=== PATIENT | female | born 1945 | race Caucasian/White ===

== ENCOUNTER → 2020-08-26 13:04 | Outpatient (BNVA) | payer MEDICARE, SELFPAY | PROVIDERS: PCP Nurse Practitioner Family; Visit Provider Internal Medicine | DX: I48.20 Chronic atrial fibrillation, unspecified (principal); Z51.81 Encounter for therapeutic drug level monitoring; Z79.01 Long term (current) use of anticoagulants | CPT/HCPCS: 85610 ==

== ENCOUNTER 2020-08-26 14:04 | Outpatient (REF) | payer MEDICARE, SELFPAY ==
[2020-08-26 14:32] LABS: Prothrombin Time 64.9 SEC (10.8-13.0)
[2020-08-26 14:38] LABS: INTERNATIONAL NORM RATIO 5.4 (0.9-1.1)
== END 2020-08-26 14:05 | disposition home or self-care (01) ==
LOC: HO.LAB 14:04
PROVIDERS: Visit Provider Internal Medicine
DX: Z79.01 Long term (current) use of anticoagulants (principal)
CPT/HCPCS: 36415; 85610

== ENCOUNTER → 2020-08-28 11:34 | Outpatient (BNVA) | payer MEDICARE, SELFPAY | PROVIDERS: PCP Nurse Practitioner Family; Visit Provider Internal Medicine | DX: I48.20 Chronic atrial fibrillation, unspecified (principal); Z51.81 Encounter for therapeutic drug level monitoring; Z79.01 Long term (current) use of anticoagulants | CPT/HCPCS: 85610; 99211 ==

== ENCOUNTER → 2020-09-05 15:32 | Outpatient (BNVA) | payer MEDICARE, SELFPAY | PROVIDERS: PCP Nurse Practitioner Family; Visit Provider Internal Medicine | DX: I48.20 Chronic atrial fibrillation, unspecified (principal); Z51.81 Encounter for therapeutic drug level monitoring; Z79.01 Long term (current) use of anticoagulants | CPT/HCPCS: 85610; 99211 ==

== ENCOUNTER → 2020-09-12 15:53 | Outpatient (BNVA) | payer MEDICARE, SELFPAY | PROVIDERS: PCP Nurse Practitioner Family; Visit Provider Internal Medicine | DX: I48.20 Chronic atrial fibrillation, unspecified (principal); Z51.81 Encounter for therapeutic drug level monitoring; Z79.01 Long term (current) use of anticoagulants | CPT/HCPCS: 85610; 99211 ==

== ENCOUNTER 2020-12-03 13:12 | Emergency (ER) | payer BC, SELFPAY ==
[2020-12-03 13:20] VITALS: BP 109/32; PULSE 60; RESP 20; TEMP 36.9; O2SAT 99; BMI 29.7
--- NOTE | 2020-12-03 15:32 | ED_ITS ---
HPI - General Adult General Chief complaint: General Medical <Barrett Bailey NP - Last Filed: 12/03/20 17:12> Stated complaint: groin pain <Barrett Bailey NP - Last Filed: 12/03/20 17:12> Time Seen by Provider: 12/03/20 15:32 <Barrett Bailey NP - Last Filed: 12/03/20 17:12> Source: patient <Barrett Bailey NP - Last Filed: 12/03/20 17:12> Mode of arrival: ambulatory <Barrett Bailey NP - Last Filed: 12/03/20 17:12> Limitations: no limitations <Barrett Bailey NP - Last Filed: 12/03/20 17:12> History of Present Illness HPI narrative: This is a pleasant 75-year-old female with past medical history that is significant for chronic obstructive pulmonary disease not on O2, 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, atrial fibrillation on chronic anticoagulation with Coumadin, 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, in addition acute intracranial bleed secondary to a fall who presents ambulatory via triage with complaint of left lower quadrant abdominal pain she reports to me that couple of weeks ago she went to for the on a trip there she had a syncopal episode and found to be significantly anemic in the ER subsequently had a workup found that she had a bleeding ulcer and had colonoscopy at [facility] in [facility] last month and since she has returned [place] [facility] she has been feeling weak and has had pain in the left lower quadrant. States she did have black tar stools prior to her syncopal episode in [place] however she has no longer had any black stools. She denies any upper respiratory symptoms. No chest pain or shortness of breath. States pain has been continuous for the past couple of weeks and has progressively gotten worse and hurts more with movement and palpation. <Barrett Bailey NP - Last Filed: 12/03/20 17:12> Onset (ago): week(s) <Barrett Bailey NP - Last Filed: 12/03/20 17:12> Location: abdomen <Barrett Bailey NP - Last Filed: 12/03/20 17:12> Severity: moderate <Barrett Bailey NP - Last Filed: 12/03/20 17:12> Quality: aching <Barrett Bailey NP - Last Filed: 12/03/20 17:12> Pain Consistency: constant <Barrett Bailey NP - Last Filed: 12/03/20 17:12> Associated symptoms: denies other symptoms <Barrett Bailey NP - Last Filed: 12/03/20 17:12> Treatments prior to arrival: none <Barrett Bailey NP - Last Filed: 12/03/20 17:12> Related Data Home medications: Home Medications Medication Instructions Recorded Confirmed albuterol sulfate 90 mcg/actuation 2 puff INHALATION Q4H PRN 08/25/20 12/03/20 aerosol inhaler metolazone 2.5 mg tablet 2.5 mg PO DAILY 08/25/20 12/03/20 metoprolol tartrate 25 mg tablet 25 mg PO BID 08/25/20 12/03/20 sertraline 50 mg tablet 50 mg PO DAILY 08/25/20 12/03/20 gabapentin 600 mg PO BID 12/03/20 12/03/20 pramipexole 0.75 mg PO DAILY 12/03/20 12/03/20 warfarin [Coumadin] 5 mg PO DAILY 12/03/20 12/03/20 Previous Rx's Medication Instructions Recorded oxycodone-acetaminophen 5 mg-325 1 tab PO Q8H PRN #20 tab 08/25/20 mg tablet aspirin 81 mg tablet,delayed 81 mg PO DAILY #90 tab 08/26/20 release omeprazole 20 mg capsule,delayed 20 mg PO DAILY #90 cap 08/26/20 release torsemide 10 mg tablet 30 mg PO BID #90 tab 08/26/20 <Barrett Bailey NP - Last Filed: 12/03/20 17:12> Allergies/adverse reactions: Allergies Allergy/AdvReac Type Severity Reaction Status Date / Time metronidazole [From FLAGYL] Allergy Intermediate ITCHING Verified 09/12/20 15:57 deet Allergy Unknown Unknown Verified 09/12/20 15:57 DEET MOSQUITO REPELLANT Allergy Severe ANGIOEDEMA Uncoded 08/07/20 14:59 metronidazole Allergy Unknown Unknown Uncoded 08/26/20 13:17 <Barrett Bailey NP - Last Filed: 12/03/20 17:12> Review of Systems Review of Systems: Constitutional: No Weight loss, No Fever, No Chills, No Night Sweats, No Fatigue, No Malaise ENT/Mouth: No Hearing loss, No Ear Pain, No Nasal Congestion, No Sinus Pain, No Hoarseness, No sore throat, No Rhinorrhea, No Swallowing Difficulty Eyes: No Eye Pain, No Swelling, No Redness, No Foreign Body, No Discharge, No Vision Changes Cardiovascular: No Chest Pain, No SOB, No Dyspnea on Exertion, No Orthopnea, No Edema, No Palpitations Respiratory: No Cough, No Sputum, No Wheezing, No Smoke Exposure, No Dyspnea Gastrointestinal: No Nausea, No Vomiting, No Diarrhea, No Constipation, + abdominal Pain, No Hematochezia, No Melena Genitourinary: no irregular bleeding, No Dysuria, No Urinary Frequency, No Hematuria, No Urinary Incontinence, No Urgency, No Flank Pain, No Urinary Flow Changes, No Hesitancy Musculoskeletal: No joint pain, No Myalgias, No Joint Swelling Skin: No Skin Lesions, No rash Neuro: No Weakness, No Numbness, No Paresthesias, No Loss of Consciousness, No Dizziness, No Headache Psych: No Social Issues Heme/Lymph: No Bruising, No Bleeding,No Lymphadenopathy Endocrine: No Polyuria, No Polydipsia, No Temperature Intolerance <Barrett Bailey NP - Last Filed: 12/03/20 17:12> Yes all other systems are reviewed and are negative <Barrett Bailey NP - Last Filed: 12/03/20 17:12> PMFSH Past Medical History Medical History: Medical History (Updated 12/03/20 @ 17:12 by Barrett Bailey NP) Atrial fibrillation Back pain Chronic a-fib Closed left hip fracture COPD (chronic obstructive pulmonary disease) Current use of anticoagulant therapy Epistaxis [place] Hip fracture Osteoarthritis of hip Sleep apnea Tachy-paras syndrome Traumatic intracranial hemorrhage <Barrett Bailey NP - Last Filed: 12/03/20 17:12> Surgical History: Surgical History Aortic valve replaced Tricuspid valve replaced <Barrett Bailey NP - Last Filed: 12/03/20 17:12> Social History Social History: Social History Alcohol intake: current Alcohol intake frequency: holidays/special occasions only Alcohol type: wine Smoked in Last 30 Days: No Use of substances other than those prescribed or required for medical reasons: No Advance Directives: No Advance Directives Information Provided: Yes <Barrett Bailey NP - Last Filed: 12/03/20 17:12> Physical Exam 2 Vital Signs: Vital Signs: Last Vital Signs Temp 98.4 F 12/03/20 22:00 Pulse 88 12/04/20 00:00 Resp 12/04/20 00:00 BP 134/75 12/04/20 00:00 Pulse Ox 97 12/04/20 00:00 Body Mass Index 29.7 Reviewed <Barrett Bailey NP - Last Filed: 12/03/20 17:12> Vital Signs: Last Vital Signs Temp 98.4 F 12/03/20 22:00 Pulse 88 12/04/20 00:00 Resp 12/04/20 00:00 BP 134/75 12/04/20 00:00 Pulse Ox 97 12/04/20 00:00 Body Mass Index 29.7 <Rosangela Pace NP - Last Filed: 12/04/20 01:31> Const: General: cooperative and healthy appearing; No acute distress or intoxicated appearing <Barrett Bailey NP - Last Filed: 12/03/20 17:12> Nutritional Appearance: average body habitus <Barrett Bailey NP - Last Filed: 17:12> Orientation/consciousness: patient oriented x3 <Barrett Bailey NP - Last Filed: 12/03/20 17:12> HENMT: Head: Yes normal to inspection <Barrett Bailey NP - Last Filed: 12/03/20 17:12> Ears: hearing grossly normal bilaterally <Barrett Bailey NP - Last Filed: 12/03/20 17:12> Eyes: General: appearance normal, both eyes and all related structures <Barrett Bailey NP - Last Filed: 12/03/20 17:12> Visual Molina: normal visual molina by confrontation <Barrett Bailey NP - Last Filed: 12/03/20 17:12> Neck: Neck: Yes normal visual inspection, No positive Brudzinski's sign, No positive Kernig's sign and No tender <Barrett Bailey NP - Last Filed: 12/03/20 17:12> Thyroid: Thyroid normal <Barrett Lynn PRODUCTION DISPATCHER - Last Filed: 12/03/20 17:12> Chest: Chest palpation & inspection: normal inspection of the chest <Barrett Bailey PRODUCTION DISPATCHER - Last Filed: 12/03/20 17:12> Resp: Effort & Inspection: normal respiratory effort <[facility] Bailey PRODUCTION DISPATCHER - Last Filed: 12/03/20 17:12> Cardio: Jugular venous distension: no JVD <Barrett Lynn - Last Filed: 12/03/20 17:12> Rate: regular rate <[facility] Bailey - Last Filed: 12/03/20 17:12> Rhythm: regular rhythm <[facility] Bailey - Last Filed: 12/03/20 17:12> Heart sounds: S1 normal heart sound present and S2 normal heart sound present <[facility] Bailey PRODUCTION DISPATCHER - Last Filed: 12/03/20 17:12> GI: Inspection: Yes normal to inspection <Barrettdeepika Bailey PRODUCTION DISPATCHER - Last Filed: 12/03/20 17:12> Palpation (GI): Tenderness to palpation present (GI) in the LLQ; with no rebound tenderness <Barrett Bailey PRODUCTION DISPATCHER - Last Filed: 12/03/20 17:12> Percussion: Yes normal to percussion <[facility] Bailey - Last Filed: 12/03/20 17:12> Auscultation: normal bowel sounds <Barrett Bailey PRODUCTION DISPATCHER - Last Filed: 12/03/20 17:12> : General: Yes no CVA tenderness <Barrett Bailey, PRODUCTION DISPATCHER - Last Filed: 12/03/20 17:12> Back/Spine/Pelvis: Back: no CVA tenderness <[facility] Bailey, PRODUCTION DISPATCHER - Last Filed: 12/03/20 17:12> Skin: General skin exam: no rashes or lesions noted <Barrett BaileyDONNA romero - Last Filed: 12/03/20 17:12> Neuro: General: patient oriented x3 <Barrett Bailey, PRODUCTION DISPATCHER - Last Filed: 12/03/20 17:12> Extrem: General: Yes normal to inspection <Barrett Bailey, PRODUCTION DISPATCHER - Last Filed: 12/03/20 17:12> Course Course Course Narrative: 1545 In review 75-year-old female with above history including history of atrial fibrillation chronically anticoagulated and GI bleed most recently evaluated and treated at [facility] at [facility] with patient's consent medical records requested who presents today with left lower quadrant abdominal pain ongoing for the past 1 and half week appears relatively uncomfortable. Occult stool done at bedside on arrival is negative sent to lab for analysis. She does seem a little pale to me and left lower quadrant abdominal pain. Will need labs including type and screen as well as imaging of the abdomen pelvis rule out acute infectious pathology/bleed less likely. Given her recent travel to [place] will also check for COVID-19. Differential diagnosis include but not limited to diverticular disease, renal calculi, acute perf. <Barrett Bailey NP - Last Filed: 12/03/20 17:12> Review of patient's medical records from [facility] in [place] for symptomatic anemia with heme-positive stools. 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 On 10/15/2020 H&H was 8.6/26 status post multiple RBC tra nsfusion on 10/14/2020. She does have heart valve replacement, pacemaker, hip replacement, knee rep lacement, and history of rheumatic valve disease. Patient states she is unable to manage her pain at home, does not feel that she could care for herself because of this pain. Plan of care is for PT, case management social worker palliative care. Patient does understand that she will be waiting in the emergency department until assessment 7th week. Patient verbalized understanding and agrees to care. <Rosangela Pace NP - Last Filed: 12/04/20 01:31> Reevaluation(s) Reevaluation #1: [id number] Sign out to night team pending re-evaluation and imaging. <Barrett Bailey NP - Last Filed: 12/03/20 17:12> Medical Decision Making Lab Data Result diagrams: : 12/03/20 16:11 12/03/20 16:11 <Barrett Bailey NP - Last Filed: 12/03/20 17:12> Labs: Lab Results 0112/03/20 12/03/20 Range/Units 16:11 16:11 16:11 WBC 10.7 (4.8-10.8) X10*3/uL RBC 3.47 L (4.20-5.50) X10*6/uL Hgb 8.9 L (12.0-16.0) g/dl Hct 28.6 L (37-47) % MCV 82.4 (80-98) fL MCH 25.6 L (27.0-33.0) pg MCHC 31.1 (31.0-35.0) g/dl RDW 17.2 H (11.0-16.0) % Plt Count 356 (160-400) X10*3/uL MPV 10.1 (9.4-12.3) fL Immature Gran % (Auto) 0.6 H (0.0-0.4) % Neut % (Auto) 74.1 H (45-73) % Lymph % (Auto) 12.6 L (20-40) % [place] % (Auto) 11.2 H (2-11) % Eos % (Auto) 1.0 (0-4) % Baso % (Auto) 0.5 (0-2) % Lymph # (Auto) 1.4 (1.2-4.9) X10*3/uL [place] # (Auto) 1.2 (0.1-1.2) X10*3/uL Eos # (Auto) 0.1 (0.0-0.4) X10*3/uL Baso # (Auto) 0.1 (0.0-0.2) X10*3/uL Abs Immat Gran (auto) 0.06 H (0.00-0.03) X10*3/uL Absolute Neuts (auto) 8.0 (2.0-8.3) X10*3/uL Absolute Nucleated RBC 0.000 (0.0-0.012) X10*3/uL Nucleated RBC % (auto) 0.0 (0.0-0.2) /100WBC PT 26.2 H D (10.8-13.0) SEC INR 2.2 H (0.9-1.1) APTT 36.7 (24.1-38.0) SEC Sodium (135-145) mmol/L Potassium (3.3-5.1) mmol/l Chloride (96-108) mmol/L Carbon Dioxide (22-29) mmol/L Anion Gap (12-20) BUN (9-16) mg/dL Creatinine (0.5-1.4) mg/dL Estim Creat Clear Calc Estimated GFR Random Glucose (60-115) mg/dL Calcium (8.4-10.2) mg/dL Total Bilirubin (0.0-1.0) mg/dL AST (5-31) U/L ALT (0-31) U/L Alkaline Phosphatase (39-117) U/L Troponin I High Sens (<3.5-17.0) ng/L Total Protein (6.5-8.0) g/dL Albumin (3.5-5.0) g/dL Stool Occult Blood (NEG) COVID-19 (ASHLEE) Negative (Negative) COVID-19 Clin Com See Note Blood Type Antibody Screen 12/03/20 12/03/20 12/03/20 Range/Units 16:11 16:11 16:11 WBC (4.8-10.8) X10*3/uL RBC (4.20-5.50) X10*6/uL Hgb (12.0-16.0) g/dl Hct (37-47) % MCV (80-98) fL MCH (27.0-33.0) pg MCHC (31.0-35.0) g/dl RDW (11.0-16.0) % Plt Count (160-400) X10*3/uL MPV (9.4-12.3) fL Immature Gran % (Auto) (0.0-0.4) % Neut % (Auto) (45-73) % Lymph % (Auto) (20-40) % [place] % (Auto) (2-11) % Eos % (Auto) (0-4) % Baso % (Auto) (0-2) % Lymph # (Auto) (1.2-4.9) X10*3/uL [place] # (Auto) (0.1-1.2) X10*3/uL Eos # (Auto) (0.0-0.4) X10*3/uL Baso # (Auto) (0.0-0.2) X10*3/uL Abs Immat Gran (auto) (0.00-0.03) X10*3/uL Absolute Neuts (auto) (2.0-8.3) X10*3/uL Absolute Nucleated RBC (0.0-0.012) X10*3/uL Nucleated RBC % (auto) (0.0-0.2) /100WBC PT (10.8-13.0) SEC INR (0.9-1.1) APTT (24.1-38.0) SEC Sodium 137 (135-145) mmol/L Potassium 3.0 L (3.3-5.1) mmol/l Chloride 91 L (96-108) mmol/L Carbon Dioxide 33 H (22-29) mmol/L Anion Gap 16 (12-20) BUN 45 H (9-16) mg/dL Creatinine 1.49 H (0.5-1.4) mg/dL Estim Creat Clear Calc 36.2 Estimated GFR 34 Random Glucose 97 (60-115) mg/dL Calcium 9.8 (8.4-10.2) mg/dL Total Bilirubin 0.7 (0.0-1.0) mg/dL AST 22 (5-31) U/L ALT 14 (0-31) U/L Alkaline Phosphatase 98 (39-117) U/L Troponin I High Sens 8.6 (<3.5-17.0) ng/L Total Protein 7.2 (6.5-8.0) g/dL Albumin 3.6 (3.5-5.0) g/dL Stool Occult Blood NEG (NEG) COVID-19 (ASHLEE) (Negative) COVID-19 Clin Com Blood Type Antibody Screen 12/03/20 Range/Units 16:11 WBC (4.8-10.8) X10*3/uL RBC (4.20-5.50) X10*6/uL Hgb (12.0-16.0) g/dl Hct (37-47) % MCV (80-98) fL MCH (27.0-33.0) pg MCHC (31.0-35.0) g/dl RDW (11.0-16.0) % Plt Count (160-400) X10*3/uL MPV (9.4-12.3) fL Immature Gran % (Auto) (0.0-0.4) % Neut % (Auto) (45-73) % Lymph % (Auto) (20-40) % [place] % (Auto) (2-11) % Eos % (Auto) (0-4) % Baso % (Auto) (0-2) % Lymph # (Auto) (1.2-4.9) X10*3/uL [place] # (Auto) (0.1-1.2) X10*3/uL Eos # (Auto) (0.0-0.4) X10*3/uL Baso # (Auto) (0.0-0.2) X10*3/uL Abs Immat Gran (auto) (0.00-0.03) X10*3/uL Absolute Neuts (auto) (2.0-8.3) X10*3/uL Absolute Nucleated RBC (0.0-0.012) X10*3/uL Nucleated RBC % (auto) (0.0-0.2) /100WBC PT (10.8-13.0) SEC INR (0.9-1.1) APTT (24.1-38.0) SEC Sodium (135-145) mmol/L Potassium (3.3-5.1) mmol/l Chloride (96-108) mmol/L Carbon Dioxide (22-29) mmol/L Anion Gap (12-20) BUN (9-16) mg/dL Creatinine (0.5-1.4) mg/dL Estim Creat Clear Calc Estimated GFR Random Glucose (60-115) mg/dL Calcium (8.4-10.2) mg/dL Total Bilirubin (0.0-1.0) mg/dL AST (5-31) U/L ALT (0-31) U/L Alkaline Phosphatase (39-117) U/L Troponin I High Sens (<3.5-17.0) ng/L Total Protein (6.5-8.0) g/dL Albumin (3.5-5.0) g/dL Stool Occult Blood (NEG) COVID-19 (ASHLEE) (Negative) COVID-19 Clin Com Blood Type A Positive Antibody Screen NEGATIVE <Barrett Lynn, PRODUCTION DISPATCHER - Last Filed: 12/03/20 17:12> Lab Results 12/03/20 12/03/20 12/03/20 Range/Units 16:11 16:11 16:11 WBC 10.7 (4.8-10.8) X10*3/uL RBC 3.47 L (4.20-5.50) X10*6/uL Hgb 8.9 L (12.0-16.0) g/dl Hct 28.6 L (37-47) % MCV 82.4 (80-98) fL MCH 25.6 L (27.0-33.0) pg MCHC 31.1 (31.0-35.0) g/dl RDW 17.2 H (11.0-16.0) % Plt Count 356 (160-400) X10*3/uL MPV 10.1 (9.4-12.3) fL Immature Gran % (Auto) 0.6 H (0.0-0.4) % Neut % (Auto) 74.1 H (45-73) % Lymph % (Auto) 12.6 L (20-40) % [place] % (Auto) 11.2 H (2-11) % Eos % (Auto) 1.0 (0-4) % Baso % (Auto) 0.5 (0-2) % Lymph # (Auto) 1.4 (1.2-4.9) X10*3/uL [place] # (Auto) 1.2 (0.1-1.2) X10*3/uL Eos # (Auto) 0.1 (0.0-0.4) X10*3/uL Baso # (Auto) 0.1 (0.0-0.2) X10*3/uL Abs Immat Gran (auto) 0.06 H (0.00-0.03) X10*3/uL Absolute Neuts (auto) 8.0 (2.0-8.3) X10*3/uL Absolute Nucleated RBC 0.000 (0.0-0.012) X10*3/uL Nucleated RBC % (auto) 0.0 (0.0-0.2) /100WBC PT 26.2 H D (10.8-13.0) SEC INR 2.2 H (0.9-1.1) APTT 36.7 (24.1-38.0) SEC Sodium (135-145) mmol/L Potassium (3.3-5.1) mmol/l Chloride (96-108) mmol/L Carbon Dioxide (22-29) mmol/L Anion Gap (12-20) BUN (9-16) mg/dL Creatinine (0.5-1.4) mg/dL Estim Creat Clear Calc Estimated GFR Random Glucose (60-115) mg/dL Calcium (8.4-10.2) mg/dL Total Bilirubin (0.0-1.0) mg/dL AST (5-31) U/L ALT (0-31) U/L Alkaline Phosphatase (39-117) U/L Troponin I High Sens (<3.5-17.0) ng/L Total Protein (6.5-8.0) g/dL Albumin (3.5-5.0) g/dL Stool Occult Blood (NEG) COVID-19 (ASHLEE) Negative (Negative) COVID-19 Clin Com See Note Blood Type Antibody Screen 12/03/20 12/03/20 12/03/20 Range/Units 16:11 16:11 16:11 WBC (4.8-10.8) X10*3/uL RBC (4.20-5.50) X10*6/uL Hgb (12.0-16.0) g/dl Hct (37-47) % MCV (80-98) fL MCH (27.0-33.0) pg MCHC (31.0-35.0) g/dl RDW (11.0-16.0) % Plt Count (160-400) X10*3/uL MPV (9.4-12.3) fL Immature Gran % (Auto) (0.0-0.4) % Neut % (Auto) (45-73) % Lymph % (Auto) (20-40) % [place] % (Auto) (2-11) % Eos % (Auto) (0-4) % Baso % (Auto) (0-2) % Lymph # (Auto) (1.2-4.9) X10*3/uL [place] # (Auto) (0.1-1.2) X10*3/uL Eos # (Auto) (0.0-0.4) X10*3/uL Baso # (Auto) (0.0-0.2) X10*3/uL Abs Immat Gran (auto) (0.00-0.03) X10*3/uL Absolute Neuts (auto) (2.0-8.3) X10*3/uL Absolute Nucleated RBC (0.0-0.012) X10*3/uL Nucleated RBC % (auto) (0.0-0.2) /100WBC PT (10.8-13.0) SEC INR (0.9-1.1) APTT (24.1-38.0) SEC Sodium 137 (135-145) mmol/L Potassium 3.0 L (3.3-5.1) mmol/l Chloride 91 L (96-108) mmol/L Carbon Dioxide 33 H (22-29) mmol/L Anion Gap 16 (12-20) BUN 45 H (9-16) mg/dL Creatinine 1.49 H (0.5-1.4) mg/dL Estim Creat Clear Calc 36.2 Estimated GFR 34 Random Glucose 97 (60-115) mg/dL Calcium 9.8 (8.4-10.2) mg/dL Total Bilirubin 0.7 (0.0-1.0) mg/dL AST 22 (5-31) U/L ALT 14 (0-31) U/L Alkaline Phosphatase 98 (39-117) U/L Troponin I High Sens 8.6 (<3.5-17.0) ng/L Total Protein 7.2 (6.5-8.0) g/dL Albumin 3.6 (3.5-5.0) g/dL Stool Occult Blood NEG (NEG) COVID-19 (ASHLEE) (Negative) COVID-19 Clin Com Blood Type Antibody Screen 12/03/20 Range/Units 16:11 WBC (4.8-10.8) X10*3/uL RBC (4.20-5.50) X10*6/uL Hgb (12.0-16.0) g/dl Hct (37-47) % MCV (80-98) fL MCH (27.0-33.0) pg MCHC (31.0-35.0) g/dl RDW (11.0-16.0) % Plt Count (160-400) X10*3/uL MPV (9.4-12.3) fL Immature Gran % (Auto) (0.0-0.4) % Neut % (Auto) (45-73) % Lymph % (Auto) (20-40) % [place] % (Auto) (2-11) % Eos % (Auto) (0-4) % Baso % (Auto) (0-2) % Lymph # (Auto) (1.2-4.9) X10*3/uL [place] # (Auto) (0.1-1.2) X10*3/uL Eos # (Auto) (0.0-0.4) X10*3/uL Baso # (Auto) (0.0-0.2) X10*3/uL Abs Immat Gran (auto) (0.00-0.03) X10*3/uL Absolute Neuts (auto) (2.0-8.3) X10*3/uL Absolute Nucleated RBC (0.0-0.012) X10*3/uL Nucleated RBC % (auto) (0.0-0.2) /100WBC PT (10.8-13.0) SEC INR (0.9-1.1) APTT (24.1-38.0) SEC Sodium (135-145) mmol/L Potassium (3.3-5.1) mmol/l Chloride (96-108) mmol/L Carbon Dioxide (22-29) mmol/L Anion Gap (12-20) BUN (9-16) mg/dL Creatinine (0.5-1.4) mg/dL Estim Creat Clear Calc Estimated GFR Random Glucose (60-115) mg/dL Calcium (8.4-10.2) mg/dL Total Bilirubin (0.0-1.0) mg/dL AST (5-31) U/L ALT (0-31) U/L Alkaline Phosphatase (39-117) U/L Troponin I High Sens (<3.5-17.0) ng/L Total Protein (6.5-8.0) g/dL Albumin (3.5-5.0) g/dL Stool Occult Blood (NEG) COVID-19 (ASHLEE) (Negative) COVID-19 Clin Com Blood Type A Positive Antibody Screen NEGATIVE <Rosangela Pace NP - Last Filed: 12/04/20 01:31> Imaging Data Abdomen/pelvis: Radiologist's impression: [facility] [address] [place] [address] CT Scan Report Signed Patient: Anne Arredondo FMR#: [id number] : 4Acct:[id number] Age/Sex: 75 / FADM Date: 12/03/20 Loc: HO.ED Attending Dr: Ordering Physician: Barrett Bailey NP Date of Service: 12/03/20 Procedure(s): CT abdomen pelvis wo con Accession Number(s): [id number] cc: Barrett Bailey NP~ EXAMINATION: CT ABDOMEN AND PELVIS WITHOUT CONTRAST CLINICAL INFORMATION: Left lower quadrant abdominal pain. COMPARISON: None TECHNIQUE: Multidetector volumetric imaging was performed from the superior aspect of the liver through the pubic symphysis. Sagittal and coronal reformatted images were obtained on the technologist's workstation. This CT examination was performed using dose optimization techniques as appropriate, variously including the following: *Automated exposure control *Adjustment of mA and/or kV according to patient size (this includes techniques or standardized protocols for targeted exams where dose is matched to indication/reason for exam; i.e. extremities or head) *Use of iterative reconstruction technique DLP: 694 mGy-cm FINDINGS: LUNG BASES: The lung bases are clear. The heart size is normal. There is mitral and aortic valve, solitary pacer electrode and median sternotomy sutures. There is small to moderate-sized hiatal hernia. LIVER, GALLBLADDER, AND BILIARY TREE: The liver is normal in size, shape, and attenuation. There are multiple small calcification seen throughout the liver. No focal lesion seen. No intrahepatic ductal dilatation. The gallbladder is unremarkable with no evidence of radiopaque gallstones, gallbladder wall thickening, or obvious pericholecystic inflammatory changes. PANCREAS: Unremarkable. SPLEEN: The spleen is normal size with multiple calcifications. ADRENAL GLANDS: Unremarkable. KIDNEYS AND URETERS: The kidneys are normal in size, shape, and attenuation. No hydronephrosis, hydroureter, or calculi seen. No perinephric stranding. BLADDER: Unremarkable. GASTROINTESTINAL TRACT: There is scattered stool, diverticuli and gas seen in the ascending and transverse colon. The small bowel loops are normal caliber. Appendix is normal caliber. The stomach is nondistended. ABDOMINAL WALL: A small amount clinic containing fat is noted. LYMPH NODES: Normal. VASCULAR: Unremarkable. PELVIC VISCERA: The uterus is anteverted with small calcifications in the fundus likely fibroids. No adnexal mass seen. OSSEOUS STRUCTURES: There are degenerative disc changes virtually at every disc level with ventral spondylosis lower dorsal and upper lumbar spine. No acute fracture or lytic process seen. CT/CT abdomen pelvis wo con IMPRESSION: Hepatosplenic calcifications without enlargement or focal lesion. No radiopaque urolith or gallstones. Mild constipation. 2 calcified uterine fundal fibroids. Dictated By:TERRY YEPEZ MD Signed By:<Electronically signed by TERRY YEPEZ MD in [place]>12/03/20 1627 DD/ 1534 TD/TT: Nitrator Operator: RICH <Barrett Bailey NP - Last Filed: 12/03/20 17:12> Chest x-ray: Radiologist's impression: [address] [address] XRay Report Signed Patient: Anen Arredondo FMR#: [id number] : 4Acct:[id number] Age/Sex: 75 / FADM Date: 12/03/20 Loc: HO.ED Attending Dr: Ordering Physician: Barrett Bailey NP Date of Service: 12/03/20 Procedure(s): XR chest 1V Accession Number(s): [id number] cc: Barrett Bailey NP~ EXAMINATION: XR CHEST CLINICAL INFORMATION: Weakness. COMPARISON: None TECHNIQUE: Frontal view of the chest was obtained. FINDINGS: The lungs are well expanded with increased bilateral interstitial markings but no acute pneumonic infiltrate. No pleural effusion. Heart size is enlarged. There is a dilated aortic knob suspicious for aneurysm. Unipolar pacer electrode tip is in the right ventricle. There is an aortic valve prosthesis and median sternotomy sutures. XR/XR chest 1V IMPRESSION: Dilated aortic knob likely aneurysm or ectasia. Underlying lesion not excluded. A similar finding has been seen in 2019, 2018, 2017, and 2013. Increased bilateral interstitial markings likely chronic. Dictated By:TERRY YEPEZ MD Signed By:<Electronically signed by TERRY YEPEZ MD in OV>12/03/20 1641 DD/ 1533 TD/TT: Nitrator Operator: RICH <Barrett Bailey NP - Last Filed: 12/03/20 17:12> Hip x-ray: Attestation: I personally reviewed and interpreted this imaging study as follows: <Rosangela Pace NP - Last Filed: 12/04/20 01:31> Radiologist's impression: EXAMINATION: XR HIP, LEFT CLINICAL INFORMATION: Pain COMPARISON: 08/12/2020, 07/11/2017 TECHNIQUE: Two views of the left hip. Also single view of the pelvis. The entire left femur is included FINDINGS: No acute finding. Hardware involving the left hip and femur. No acute fracture or dislocation. XR/XR hip LT w PEL1V IMPRESSION: No acute finding. Hardware in place. <Rosangela Pace NP - Last Filed: 12/04/20 01:31> ECG Data Interpretation: Sinus Paras Rate [address] segment changes <Barrett Bailey NP - Last Filed: 12/03/20 17:12> Discharge Plan Discharge Clinical Impression: Abdominal pain <Barrett Bailey NP - Last Filed: 12/03/20 17:12> Prescriptions: No Action gabapentin 600 mg Tablet 600 mg PO BID RF: 0 warfarin [Coumadin] 5 mg Tablet 5 mg PO DAILY RF: 0 pramipexole 0.75 mg Tablet 0.75 mg PO DAILY RF: 0 sertraline 50 mg tablet 50 mg PO DAILY RF: 0 metoprolol tartrate 25 mg tablet 25 mg PO BID RF: 0 metolazone 2.5 mg tablet 2.5 mg PO DAILY RF: 0 albuterol sulfate 90 mcg/actuation HFA aerosol inhaler 2 puff inhalation Q4H PRN (Reason: wheezing) RF: 0 oxycodone-acetaminophen [Percocet] 5-325 mg tablet 1 tab PO Q8H PRN (Reason: pain) Qty: 20 RF: 0 omeprazole 20 mg capsule,delayed release(DR/EC) 20 mg PO DAILY Qty: 90 RF: 0 aspirin [Adult Aspirin Regimen] 81 mg tablet,delayed release (DR/EC) 81 mg PO DAILY Qty: 90 RF: 0 torsemide 10 mg tablet 30 mg PO BID Qty: 90 RF: 0 <Barrett Bailey NP - Last Filed: 12/03/20 17:12>
--- NOTE | 2020-12-03 15:33 | ECG_ITS ---
Test Reason : ABD PAIN Blood Pressure : / mmHG Vent. Rate : 055 BPM Atrial Rate : 055 BPM P-R Int : 528 ms QRS Dur : 196 ms QT Int : 552 ms P-R-T Axes : 095 092 -25 degrees QTc Int : 528 ms Sinus bradycardia with 1st degree A-V block with Ventricular-paced rhythm Abnormal ECG When compared with ECG of 28-FEB-2020 12:29, No significant changes seen Referred By: Barrett Bailey Electronically Signed By:RD WILDER MD
--- NOTE | 2020-12-03 15:40 | PC.NURSE ---
cxr performed and pt brought direct to ct scan before this nurse could see patient
--- NOTE | 2020-12-03 15:40 | PC.NURSE ---
rectal exam done by provider
[2020-12-03 16:15] VITALS: BP 127/40; PULSE 53; RESP 18; TEMP 37.1; O2SAT 100
[2020-12-03 16:25] LABS: MANUAL DIFF FLAG NO
[2020-12-03 16:31] LABS: Basophils Absolute Auto 0.1 X10*3/uL (0.0-0.2); Basophils Percent Auto 0.5 % (0-2); Eosinophils Absolute Auto 0.1 X10*3/uL (0.0-0.4); Hematocrit 28.6 % (37-47); Hemoglobin 8.9 g/dl (12.0-16.0); Imm Gran Abs Auto 0.06 X10*3/uL (0.00-0.03); Imm Gran Pct Auto 0.6 % (0.0-0.4); Lymphocytes Absolute Auto 1.4 X10*3/uL (1.2-4.9); Lymphocytes Percent Auto 12.6 % (20-40); Mean Corpuscular HGB Conc 31.1 g/dl (31.0-35.0); Mean Corpuscular Hemoglobin 25.6 pg (27.0-33.0); Mean Corpuscular Volume 82.4 fL (80-98); Mean Platelet Volume 10.1 fL (9.4-12.3); Monocytes Absolute Auto 1.2 X10*3/uL (0.1-1.2); Monocytes Percent Auto 11.2 % (2-11); Neutrophils Percent Auto 74.1 % (45-73); Platelet Count 356 X10*3/uL (160-400); Red Blood Count 3.47 X10*6/uL (4.20-5.50); Red Cell Distribution Width 17.2 % (11.0-16.0); White Blood Count 10.7 X10*3/uL (4.8-10.8)
[2020-12-03 16:34] LABS: OBS Int Ctl Valid YES; OBS1 NEG (NEG)
[2020-12-03 16:46] LABS: INTERNATIONAL NORM RATIO 2.2 (0.9-1.1); Prothrombin Time 26.2 SEC (10.8-13.0)
[2020-12-03 16:48] LABS: Partial Thromboplastin Time 36.7 SEC (24.1-38.0)
[2020-12-03 16:49] LABS: Troponin-I High Sensitivity 8.6 ng/L (<3.5-17.0)
[2020-12-03 16:58] LABS: Alanine Aminotransferase 14 U/L (0-31); Albumin Level 3.6 g/dL (3.5-5.0); Alkaline Phosphatase 98 U/L (39-117); Anion Gap 16 (12-20); Aspartate Amino Transferase 22 U/L (5-31); Bilirubin Total 0.7 mg/dL (0.0-1.0); Blood Urea Nitrogen 45 mg/dL (9-16); Calcium 9.8 mg/dL (8.4-10.2); Carbon Dioxide 33 mmol/L (22-29); Chloride 91 mmol/L (96-108); Creatinine Clr Calc Pharmacy 36.2; Estimated Glomerular Filt Rate 34; Glucose Random 97 mg/dL (60-115); Sodium 137 mmol/L (135-145); Total Protein 7.2 g/dL (6.5-8.0)
--- NOTE | 2020-12-03 17:00 | PC.NURSE ---
per patient request, patient was moved from rm 14 to 17
[2020-12-03 17:15] LABS: COVID-19 Test Negative (Negative)
[2020-12-03 17:43] VITALS: BP 124/54; PULSE 54; RESP 16; O2SAT 99
[2020-12-03] MEDS: Simethicone 80 MG TAB.CHEW 160 MG PO (17:47)
--- NOTE | 2020-12-03 18:03 | PC.NURSE ---
patient medicated per order
--- NOTE | 2020-12-03 18:09 | XR_ITS ---
EXAMINATION: XR HIP, LEFT CLINICAL INFORMATION: Pain COMPARISON: 08/12/2020, 07/11/2017 TECHNIQUE: Two views of the left hip. Also single view of the pelvis. The entire left femur is included FINDINGS: No acute finding. Hardware involving the left hip and femur. No acute fracture or dislocation. XR/XR hip LT w PEL1V IMPRESSION: No acute finding. Hardware in place.
[2020-12-03] MEDS: Morphine Sulfate 2 MG/ML CARTRIDGE IVPUSH (18:15)
--- NOTE | 2020-12-03 18:18 | PC.NURSE ---
patient medicated for pain per order
--- NOTE | 2020-12-03 18:22 | PC.NURSE ---
pt to radiology
[2020-12-03 19:49] VITALS: BP 116/45; PULSE 58; RESP 18; TEMP 36.9
[2020-12-03] MEDS: Sodium Phosphate,Mono-Dibasic 133 ML ENEMA PR (19:50)
[2020-12-03] MEDS: oxyCODONE HCl Immed Release 5 MG TABLET PO ×2 (19:50→23:41)
[2020-12-03] MEDS: 0.9 % Sodium Chloride 1,000 ML 999 ML IV (20:03)
--- NOTE | 2020-12-03 20:21 | PC.NURSE ---
patient medicated for pain per order, ivf started per order, pt given enema per order, patient tearful over pain and her current situation. vss, will continue to monitor.
--- NOTE | 2020-12-03 20:30 | PC.NURSE ---
patient was given enema, refused oob to commode and requested bedpan, patient was put on bedpan where she expelled the liquid that was instilled only. will continue to monitor.
[2020-12-03 22:00] VITALS: BP 108/46; PULSE 54; RESP 18; TEMP 36.9; O2SAT 99
--- NOTE | 2020-12-03 22:08 | PC.NURSE ---
patient a&ox3, vss, pt given pudding and water per her request and okd by provider, pt states her pain is better and a 6/10 as long as she doesnt move, will continue to monitor.
[2020-12-04] VITALS (16 sets, daily range): BP systolic 115–134; BP diastolic 41–82; PULSE 58–88; RESP 16–18; TEMP 36.8–36.9; O2SAT 94–97
--- NOTE | 2020-12-04 00:06 | PC.NURSE ---
PATIENT TOILETED ON BEDPAN, ABLE TO TURN BY HERSELF, EXPERIENCING PAIN WITH MOVEMENT ON THE LEFT HIP. STATING WHILE HOLDING STILL PAIN IS 0/10. PLAN OF CARE TO SEE CASE MANAGEMENT AND PT IN THE AM.
[2020-12-04] MEDS: oxyCODONE HCl Immed Release 5 MG TABLET PO ×4 (04:38→22:43)
--- NOTE | 2020-12-04 04:58 | PC.NURSE ---
PATIENT ABLE TO TURN HERSELF, TOILETED USING BEDPAN. PATIENT CRYING IN ANTICIPATION OF THE PAIN GUARDING LEFT HIP. CHANGING THE LINEN WHILE PATIENT WAS TURNING FOR TOLIETING. PATIENT TOLERATED WELL, COM PAIN AT TIMES. GIVEN BREATHING TECHNIQUES TO HELP WITH PAIN WELL ASKING MD FOR ADDITIONAL MEDICATIONS. PATIENT MEDICATED PER PRN IN EMAR.
[2020-12-04] MEDS: diazePAM 2 MG TABLET PO ×2 (08:42→15:24)
[2020-12-04 09:05] LABS: MANUAL DIFF FLAG NO
[2020-12-04 09:07] LABS: Basophils Percent Auto 0.1 % (0-2); Eosinophils Absolute Auto 0.1 X10*3/uL (0.0-0.4); Eosinophils Percent Auto 0.3 % (0-4); Hematocrit 28.5 % (37-47); Hemoglobin 8.7 g/dl (12.0-16.0); Imm Gran Abs Auto 0.06 X10*3/uL (0.00-0.03); Imm Gran Pct Auto 0.4 % (0.0-0.4); Lymphocytes Percent Auto 6.9 % (20-40); Mean Corpuscular HGB Conc 30.5 g/dl (31.0-35.0); Mean Corpuscular Hemoglobin 25.5 pg (27.0-33.0); Mean Corpuscular Volume 83.6 fL (80-98); Mean Platelet Volume 10.4 fL (9.4-12.3); Monocytes Absolute Auto 1.2 X10*3/uL (0.1-1.2); Monocytes Percent Auto 8.3 % (2-11); Platelet Count 342 X10*3/uL (160-400); Red Blood Count 3.41 X10*6/uL (4.20-5.50); Red Cell Distribution Width 17.2 % (11.0-16.0); White Blood Count 14.3 X10*3/uL (4.8-10.8)
[2020-12-04] MEDS: metOLazone 2.5 MG TABLET PO (11:03)
[2020-12-04] MEDS: Omeprazole 20 MG CAPSULE.DR PO (11:03)
[2020-12-04] MEDS: Gabapentin 600 MG TABLET PO ×2 (11:03→21:55)
[2020-12-04] MEDS: Sertraline HCL 50 MG TABLET PO (11:03)
[2020-12-04] MEDS: Aspirin Enteric Coated 81 MG TABLET.DR PO (11:03)
[2020-12-04] MEDS: Warfarin Sodium 5 MG TABLET PO (11:04)
[2020-12-04] MEDS: Metoprolol Tartrate 25 MG TABLET PO ×2 (11:07→21:55)
--- NOTE | 2020-12-04 13:26 | MHC.CM.ED ---
Met with pt. 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 Was in [place] from Aug. to 2 days ago.PT recommended a trail of STR for stypical L lower abd pain, with decreased tolerance and strength secondary to pain. Pt adamantly refuses to go to rehab. States her can care for her. [facility] will provide transportation home. She will need a wheelchair to car. Explained to pt that we need her to sit up and move. Pt has refused to get up at this point. Will complete HCP with patient. Pt requesting to have PT at home. MD and RN aware. Referrals placed. Will follow for d/c needs
--- NOTE | 2020-12-04 14:47 | MHC.CM.ED ---
Pt was assisted to chair. Took 3 staff. Very slow. Pt crying in pain. States pain is all in her back. Pt has HX of back pain. CM directly asked pt how she thinks she can go home in this condition. Pt states she now knows she can't go home. Has no requests for STR. Will place local referrals. HCP reviewed, completed and signed. Pt looks much more comfortable in the recliner chair. Had placed referrals for [facility] home PT. No one able to provide services secondary to her [facility] [place] insurance. aware. RN present. Will follow for d/c needs
--- NOTE | 2020-12-04 16:20 | MHC.CM.PN ---
[facility] [place] and [facility] are interested. No offers yet. Pt more comfortable in chair but continues to c/o pain. Spoke to Sandip LEE. Will speak with provider about pain medication options. Pt aware she will spend the night. Will follow for d/c needs in the am.
--- NOTE | 2020-12-04 16:34 | PC.NURSE ---
PT will stay in ED overnight tonight per Case Management. Plan for pt to be sent to short term rehab. Pt verbalizes understanding of current plan of care.
[2020-12-04] MEDS: Torsemide 20 MG TABLET 30 MG PO (22:39)
--- NOTE | 2020-12-04 23:26 | PC.NURSE ---
PATIENT'S ASKED FOR DIAZEPAM WHICH IS PRN. PATIENT WAS NOT DUE UNTIL 11:30 AND PATIENT STATED I WILL PROBABLY BE ASLEEP SO WAKE ME UP . I EXPLAINED THAT IF SHE WAS SLEEPING THAT SHE MOST LIKELY DID NOT NEED THE PRN MEDICATION.
[2020-12-05] VITALS (14 sets, daily range): BP systolic 94–128; BP diastolic 28–56; PULSE 15–84; RESP 14–20; O2SAT 96–98
--- NOTE | 2020-12-05 07:39 | PC.NURSE ---
report taken from aracely schumacher, pt laying in bed. calling to request bed correa. pt placed on bedpan and removed. pt also requesting breakfast tray. tray given. pt refusing to sit up d/t back pain states she is here to go to a rehab facility. pt moved up in bed and continues to refuse to sit up.
--- NOTE | 2020-12-05 08:19 | PC.NURSE ---
pt sitting up in bed on her own, eating breakfast. no assistance needed.
--- NOTE | 2020-12-05 08:30 | MHC.CM.ED ---
Met with pt to discuss choices for rehab. [facility] pending auth and [facility] is checking bed availability and auth. [facility] choice [facility]. Facility aware. Pt had a good night and was able to sit up herself. States she still has pain, but more manageable. Will follow for d/c needs.
[2020-12-05] MEDS: metOLazone 2.5 MG TABLET PO (09:26)
[2020-12-05] MEDS: Sertraline HCL 50 MG TABLET PO (09:26)
[2020-12-05] MEDS: Pramipexole Di-HCL 0.25 MG TABLET 0.75 MG PO (09:26)
[2020-12-05] MEDS: Aspirin Enteric Coated 81 MG TABLET.DR PO (09:26)
[2020-12-05] MEDS: Warfarin Sodium 5 MG TABLET PO (09:26)
[2020-12-05] MEDS: Torsemide 20 MG TABLET 30 MG PO ×2 (09:26→22:09)
[2020-12-05] MEDS: Omeprazole 20 MG CAPSULE.DR PO (09:27)
[2020-12-05] MEDS: Metoprolol Tartrate 25 MG TABLET PO (09:27)
[2020-12-05] MEDS: Gabapentin 600 MG TABLET PO ×2 (09:27→21:07)
--- NOTE | 2020-12-05 11:55 | PC.NURSE ---
pt just woke up from sleeping for several hours. pt screams i have to use the bed correa! i have been ringing over 5 times! no hepl astorga has gone off and pt educated on use of astorga. pt starting to get aggressive and yell profanities at this rn. pt placed on bed correa and given call astorga.
--- NOTE | 2020-12-05 12:21 | PC.NURSE ---
pt taken off bed correa and cleaned. pt requseting to speak to cm.
--- NOTE | 2020-12-05 13:36 | PC.NURSE ---
pt sat on edge of bed with no assistance to eat lunch
--- NOTE | 2020-12-05 16:26 | MHC.CM.PN ---
Pt was able to sit up on side of bed herself. Ate lunch. Awaiting insurance auth for [employer]. Pt aware that this will take time because it is out of state . Pt understands. Pt will stay overnight and hopefully d/c to [facility] tomorrow. Will follow for d/c needs.
--- NOTE | 2020-12-05 18:23 | PC.NURSE ---
pt continues to be drowsy and sleepy. easily arousable.
--- NOTE | 2020-12-05 19:01 | PC.NURSE ---
Report taken from ángel Nuno RN resuming care. UA obtained and sent. Pt assisted onto the commode, provided with brad care and fresh bed linens. Continue to monitor.
[2020-12-05 19:09] LABS: Glucose Urine UA NEG (NEG); Leukocyte Esterase Urine NEG (NEG); Nitrite Urine NEG (NEG); Specific Gravity - Urine 1.015 (1.005-1.025); Urine Blood TRACE (NEG); Urine Ketones NEG (NEG); Urine Protein NEG (NEG-TRACE)
[2020-12-05 19:12] LABS: Appearance Urine CLEAR; Color Urine YELLOW
[2020-12-05 19:27] LABS: Bacteria Urine 1+ /LPF; Squamous Epithelial Cell Urine 2+ /LPF
--- NOTE | 2020-12-05 20:41 | PC.NURSE ---
0745 PT/INR not obtained, pt given Coumadin @ 0900. This RN discussing pending order with MD, per MD to draw 0745 PT/INR since it was not obtained this morning. Labs obtained and sent. Pt resting in bed, only ate approx 25% of dinner. VSS. Continue to monitor.
--- NOTE | 2020-12-05 20:45 | PC.NURSE ---
This RN calling pharmacy regarding 2100 order for Torsemide as it is not stocked in [facility]. Pharm to bring to ED.
[2020-12-05 20:53] LABS: INTERNATIONAL NORM RATIO 2.3 (0.9-1.1); Prothrombin Time 28.1 SEC (10.8-13.0)
--- NOTE | 2020-12-05 21:11 | PC.NURSE ---
Pt medicated with Gabapentin. 2100 Metoprolol held due to decreased HR/BP. Awaiting Torsemide from Pharmacy.
--- NOTE | 2020-12-05 21:23 | PC.NURSE ---
Pt sleeping in bed at this time in NAD, visible chest rise noted. Continue to monitor.
--- NOTE | 2020-12-05 22:26 | PC.NURSE ---
Pt medicated with Torsemide by ROSA Watson.
[2020-12-06] VITALS (11 sets, daily range): BP systolic 113–136; BP diastolic 45–67; PULSE 56–70; RESP 16–20; TEMP 36.6–36.9; O2SAT 94–99
[2020-12-06] MEDS: oxyCODONE HCl Immed Release 5 MG TABLET PO ×3 (00:51→16:38)
--- NOTE | 2020-12-06 00:55 | PC.NURSE ---
Pt requesting to use the bed correa, states she doesn't want to get up due to chronic back pain. Pt assisted on to the bed correa, able to roll side to side. Pt found to be incontinent of urine, provided with brad care and a complete bed change. Pt attempted to ambulate into chair but was unable to due to 10/10 pain with movement/ambulation. Pt medicated with Oxycodone per request for 10/10 pain. VSS. Pt provided with water and warm blankets. Continue to monitor.
--- NOTE | 2020-12-06 01:31 | PC.NURSE ---
This tech attempted to put pt in recliner,pt was unable to due to pain. pt was incont of a lg amount of urine.pt was cleaned and repositioned. rn aware
--- NOTE | 2020-12-06 03:16 | PC.NURSE ---
Pt sleeping in bed at this time in NAD, visible chest rise noted. Continue to monitor.
--- NOTE | 2020-12-06 05:24 | PC.NURSE ---
Pt assisted onto bedpan, voiding easily on bedpan. Pt refusing to get OOB and attempt to void in bedside commode. Pt provided with brad care and a bed change. Pt assisted into POC, resting in bed. Continue to monitor.
[2020-12-06] MEDS: diazePAM 2 MG TABLET PO ×2 (07:26→20:32)
[2020-12-06] MEDS: Omeprazole 20 MG CAPSULE.DR PO (09:27)
[2020-12-06] MEDS: Sertraline HCL 50 MG TABLET PO (09:27)
[2020-12-06] MEDS: Warfarin Sodium 5 MG TABLET PO (09:27)
[2020-12-06] MEDS: Torsemide 20 MG TABLET 30 MG PO ×2 (09:27→20:31)
[2020-12-06] MEDS: Aspirin Enteric Coated 81 MG TABLET.DR PO (09:28)
[2020-12-06] MEDS: Metoprolol Tartrate 25 MG TABLET PO ×2 (09:28→20:32)
[2020-12-06] MEDS: Gabapentin 600 MG TABLET PO ×2 (09:28→20:32)
--- NOTE | 2020-12-06 12:50 | MHC.CM.ED ---
pt is agreeable to going to [facility] [place], however it appears [facility] does not have a contract c pt's insurance. however , pt is willing to go to [facility] which has accepted her and where she has been before. unfortunately, this transfer cannot happen as pt's insurance requires authorization which cannot happen until tuesday. rn in the e.d. is aware of this situation. cm to cont. to follow.
[2020-12-06] MEDS: Pramipexole Di-HCL 0.25 MG TABLET 0.75 MG PO (16:39)
[2020-12-06] MEDS: metOLazone 2.5 MG TABLET PO (16:39)
--- NOTE | 2020-12-06 20:26 | PC.NURSE ---
several attempt were made to have patient sit up in chair ,patient refused stating she is in too much pain when move around ,endy doan aware .
--- NOTE | 2020-12-06 23:35 | PC.NURSE ---
pt up to chair at [facility]. airway patent. vss.
[2020-12-07] VITALS (9 sets, daily range): BP systolic 114–136; BP diastolic 39–52; PULSE 59–90; RESP 16–18; TEMP 36.3–36.9; O2SAT 93–98
[2020-12-07] MEDS: oxyCODONE HCl Immed Release 5 MG TABLET PO ×2 (00:39→09:34)
[2020-12-07] MEDS: Torsemide 20 MG TABLET 30 MG PO ×2 (09:23→20:33)
[2020-12-07] MEDS: Metoprolol Tartrate 25 MG TABLET PO (09:23)
[2020-12-07 09:24] LABS: INTERNATIONAL NORM RATIO 3.5 (0.9-1.1); Prothrombin Time 41.9 SEC (10.8-13.0)
[2020-12-07] MEDS: Aspirin Enteric Coated 81 MG TABLET.DR PO (09:24)
[2020-12-07] MEDS: Sertraline HCL 50 MG TABLET PO (09:24)
[2020-12-07] MEDS: Warfarin Sodium 5 MG TABLET PO (09:24)
[2020-12-07] MEDS: diazePAM 2 MG TABLET PO (09:33)
[2020-12-07] MEDS: Omeprazole 20 MG CAPSULE.DR PO (09:33)
[2020-12-07] MEDS: Gabapentin 600 MG TABLET PO ×2 (09:34→20:33)
[2020-12-07] MEDS: metOLazone 2.5 MG TABLET PO (09:44)
[2020-12-07] MEDS: Pramipexole Di-HCL 0.25 MG TABLET 0.75 MG PO (09:44)
--- NOTE | 2020-12-07 12:53 | PC.NURSE ---
pt's inr is 3.5. pharmacy will switch the dosing time to 1600 from now on, michael ordered a pt/inr for 0600 tomorrow and then we can decide whether to give the pt/inr or not. pt informed of this plan
[2020-12-08] VITALS (7 sets, daily range): BP systolic 116–133; BP diastolic 39–59; PULSE 71–75; RESP 16–18; TEMP 36.7–36.9; O2SAT 95–96
--- NOTE | 2020-12-08 07:54 | PC.NURSE ---
pt is eating fruit for breakfast. pt is stating that she would like to go home and have her therapy. case management to be made aware.
[2020-12-08] MEDS: metOLazone 2.5 MG TABLET PO (09:52)
[2020-12-08] MEDS: Metoprolol Tartrate 25 MG TABLET PO (09:57)
[2020-12-08] MEDS: Omeprazole 20 MG CAPSULE.DR PO (09:58)
[2020-12-08] MEDS: Gabapentin 600 MG TABLET PO (09:58)
[2020-12-08] MEDS: Torsemide 20 MG TABLET 30 MG PO (09:58)
[2020-12-08] MEDS: Aspirin Enteric Coated 81 MG TABLET.DR PO (09:58)
[2020-12-08] MEDS: Sertraline HCL 50 MG TABLET PO (09:58)
[2020-12-08] MEDS: Pramipexole Di-HCL 0.25 MG TABLET 0.75 MG PO (10:00)
--- NOTE | 2020-12-08 10:30 | MHC.CM.ED ---
Met with pt. Pt understandably upset about wait in ED. Explained to her the problem with insurance authorization because her insurance is out of state and that many are not working on the weekends. Pt c/o noise in ED overnight, stating it's difficult to sleep. Explained to pt that unfortunately, the ED is very busy and runs 24/7. No real down time. Pt states she wants to go home. Spoke with pt about a safe discharge and the need for her to be able to get up and move. Pt agreeable to getting OOB and trying to move. RN aware and will help pt get OOB.
--- NOTE | 2020-12-08 10:46 | MHC.CM.ED ---
Met with patient again. States she will go home. Pt aware that CM was unable to arrange home PT secondary to out of state insurance or [employer] not accepted. Pt aware she would need to follow up with PCP. Pt understands, but states she cannot stay another day in the ED. CM reached out to PT to assess pt for walker usage.
--- NOTE | 2020-12-08 11:32 | MHC.CM.ED ---
No bed available yet at [facility]. Also pending auth. PT evaluated pt. States significant improvement since initial evaluation, but would still recommend STR for optimal safety. Pt refuses. Would recommend front wheeled walker and home PT. Home PT not an option secondary to insurance issues. Script for front wheeled walker. Pt requests to go home. Encouraged pt to f/u with PCP and to fix her insurance issues. Pt happy to go home. RN aware . to provide transportation home.
== END 2020-12-08 12:45 | disposition home or self-care (01) ==
PROVIDERS: Nurse Practitioner Family; Nurse Practitioner Primary Care; Emergency Provider Internal Medicine; PCP Nurse Practitioner Family
DX: S76.019A Strain of muscle, fascia and tendon of unspecified hip, initial encounter (principal); R10.32 Left lower quadrant pain; Z20.822 Contact with and (suspected) exposure to COVID-19; J44.9 Chronic obstructive pulmonary disease, unspecified; I49.5 Sick sinus syndrome; I48.20 Chronic atrial fibrillation, unspecified; X58.XXXA Exposure to other specified factors, initial encounter; Y93.9 Activity, unspecified; Y92.9 Unspecified place or not applicable; Y99.9 Unspecified external cause status; Z79.01 Long term (current) use of anticoagulants; Z95.2 Presence of prosthetic heart valve; Z96.649 Presence of unspecified artificial hip joint; Z96.659 Presence of unspecified artificial knee joint
CPT/HCPCS: 36415; 71045; 73502; 74176; 80053; 81001; 82272; 84484; 85025; 85610; 85730; 86850; 86900; 86901; 87635; 93005; 97110; 97116; 97163; 99284; J2270

== ENCOUNTER 2021-03-11 10:40 | Outpatient (REF) | payer MEDICARE, SELFPAY ==
[2021-03-11 13:54] LABS: MANUAL DIFF FLAG NO
[2021-03-11 14:04] LABS: Basophils Absolute Auto 0.1 X10*3/uL (0.0-0.2); Basophils Percent Auto 0.8 % (0-2); Eosinophils Absolute Auto 0.1 X10*3/uL (0.0-0.4); Eosinophils Percent Auto 1.3 % (0-4); Hematocrit 29.8 % (37-47); Hemoglobin 8.6 g/dl (12.0-16.0); Imm Gran Abs Auto 0.04 X10*3/uL (0.00-0.03); Imm Gran Pct Auto 0.4 % (0.0-0.4); Lymphocytes Absolute Auto 1.3 X10*3/uL (1.2-4.9); Lymphocytes Percent Auto 13.5 % (20-40); Mean Corpuscular HGB Conc 28.9 g/dl (31.0-35.0); Mean Corpuscular Hemoglobin 26.1 pg (27.0-33.0); Mean Corpuscular Volume 90.3 fL (80-98); Mean Platelet Volume 10.7 fL (9.4-12.3); Monocytes Percent Auto 10.7 % (2-11); Neutrophils Absolute Auto 6.8 X10*3/uL (2.0-8.3); Neutrophils Percent Auto 73.3 % (45-73); Platelet Count 379 X10*3/uL (160-400); Red Cell Distribution Width 17.8 % (11.0-16.0); White Blood Count 9.3 X10*3/uL (4.8-10.8)
[2021-03-11 14:11] LABS: INTERNATIONAL NORM RATIO 1.7 (0.9-1.1)
[2021-03-11 14:24] LABS: Alanine Aminotransferase 11 U/L (0-31); Albumin Level 3.8 g/dL (3.5-5.0); Alkaline Phosphatase 128 U/L (39-117); Anion Gap 16 (12-20); Aspartate Amino Transferase 19 U/L (5-31); Bilirubin Total 0.7 mg/dL (0.0-1.0); Blood Urea Nitrogen 38 mg/dL (9-16); Calcium 9.9 mg/dL (8.4-10.2); Carbon Dioxide 34 mmol/L (22-29); Chloride 95 mmol/L (96-108); Cholesterol 165 mg/dL; Estimated Glomerular Filt Rate 34; Glucose Fasting 79 mg/dL (60-99); HDL Cholesterol 38 mg/dL; Iron 92 mcg/dL (30-160); LDL Cholesterol Calculated 103 mg/dl; Percent Iron Saturation 27 % (15-50); Potassium 3.5 mmol/L (3.3-5.1); Sodium 141 mmol/L (135-145); Total Iron Binding Capacity 343 mcg/dL (228-428); Total Protein 6.9 g/dL (6.5-8.0); Triglycerides 124 mg/dL; Unsaturated Iron Binding 251 ug/dL
[2021-03-11 14:45] LABS: Ferritin 65 ng/mL (10-250); TSH reflex Free T4 0.77 uIU/mL (0.32-4.0)
[2021-03-11 14:58] LABS: Folate 16.6 ng/mL (> or = 4.0); Vitamin B12 849 pg/mL (200-900)
== END 2021-03-11 10:41 | disposition home or self-care (01) ==
LOC: HO.HMGCLDS 10:40
PROVIDERS: PCP Nurse Practitioner Family; Visit Provider Nurse Practitioner Family
DX: I48.20 Chronic atrial fibrillation, unspecified (principal); D64.9 Anemia, unspecified
CPT/HCPCS: 36415; 80053; 80061; 82607; 82728; 82746; 83540; 84443; 85025; 85610

== ENCOUNTER 2021-03-18 13:27 | Outpatient (REF) | payer MEDICARE, SELFPAY ==
[2021-03-18 16:45] LABS: INTERNATIONAL NORM RATIO 2.1 (0.9-1.1); Prothrombin Time 24.9 SEC (10.8-13.0)
== END 2021-03-18 13:28 | disposition home or self-care (01) ==
LOC: HO.HMGCLDS 13:27
PROVIDERS: PCP Nurse Practitioner Family; Visit Provider Internal Medicine
DX: Z79.01 Long term (current) use of anticoagulants (principal)
CPT/HCPCS: 36415; 85610

== ENCOUNTER → 2021-03-25 13:31 | Outpatient (BNVA) | payer MEDICARE, SELFPAY | PROVIDERS: PCP Nurse Practitioner Family; Visit Provider Internal Medicine | DX: I48.20 Chronic atrial fibrillation, unspecified (principal); Z51.81 Encounter for therapeutic drug level monitoring; Z79.01 Long term (current) use of anticoagulants | CPT/HCPCS: 85610; 99211 ==

== ENCOUNTER 2021-03-27 09:57 | Outpatient (REF) | payer MEDICARE, SELFPAY ==
--- NOTE | ~2021-03-27 | XR_ITS ---
EXAMINATION: XR HAND, RIGHT CLINICAL INFORMATION: Arthritis COMPARISON: None TECHNIQUE: PA, lateral, and oblique views of the right hand. FINDINGS: Bone alignment is normal. No acute fracture or dislocation is seen. There is orthopedic hardware seen in the right distal radius. There is arthritis at the first CORRECTION joint with joint space narrowing and osteophyte formation. There is arthritis at the IP joints with joint space narrowing and osteophyte formation. Soft tissues are unremarkable. XR/XR hand RT min 3V IMPRESSION: Orthopedic hardware in the right distal radius. Arthritis at the first CORRECTION and IP joints.
== END 2021-03-27 09:58 | disposition home or self-care (01) ==
LOC: HO.HMGCX 09:57
PROVIDERS: PCP Nurse Practitioner Family; Visit Provider Hospitalist
DX: M19.042 Primary osteoarthritis, left hand (principal); M19.041 Primary osteoarthritis, right hand
CPT/HCPCS: 36415; 73130; 82550

== ENCOUNTER → 2021-04-02 13:44 | Outpatient (BNVA) | payer MEDICARE, SELFPAY | PROVIDERS: PCP Nurse Practitioner Family; Visit Provider Nurse Practitioner Family | DX: I48.20 Chronic atrial fibrillation, unspecified (principal); Z51.81 Encounter for therapeutic drug level monitoring; Z79.01 Long term (current) use of anticoagulants | CPT/HCPCS: 85610; 99211 ==

== ENCOUNTER → 2021-04-16 13:45 | Outpatient (BNVA) | payer MEDICARE, SELFPAY | PROVIDERS: PCP Nurse Practitioner Family; Visit Provider Internal Medicine | DX: I48.20 Chronic atrial fibrillation, unspecified (principal); Z51.81 Encounter for therapeutic drug level monitoring; Z79.01 Long term (current) use of anticoagulants | CPT/HCPCS: 85610; 99211 ==

== ENCOUNTER → 2021-04-30 13:44 | Outpatient (BNVA) | payer MEDICARE, SELFPAY | PROVIDERS: PCP Nurse Practitioner Family; Visit Provider Internal Medicine | DX: I48.20 Chronic atrial fibrillation, unspecified (principal); Z51.81 Encounter for therapeutic drug level monitoring; Z79.01 Long term (current) use of anticoagulants | CPT/HCPCS: 85610; 99211 ==

== ENCOUNTER → 2021-05-07 13:26 | Outpatient (BNVA) | payer MEDICARE, SELFPAY | PROVIDERS: PCP Nurse Practitioner Family; Visit Provider Internal Medicine | DX: I48.20 Chronic atrial fibrillation, unspecified (principal); Z51.81 Encounter for therapeutic drug level monitoring; Z79.01 Long term (current) use of anticoagulants | CPT/HCPCS: 85610; 99211 ==

== ENCOUNTER 2021-05-14 12:36 | Outpatient (REF) | payer MEDICARE, SELFPAY ==
--- NOTE | ~2021-05-14 | XR_ITS ---
EXAMINATION: XR SHOULDER, LEFT CLINICAL INFORMATION: Left shoulder pain COMPARISON: None TECHNIQUE: Three views of the left shoulder. FINDINGS: There is no evidence of acute fracture or dislocation of the left shoulder. Osteopenia is present. No humeral joint demonstrates mild spurring without narrowing. No widening of the coracoclavicular space is seen. XR/XR shoulder LT min 2V IMPRESSION: No acute fracture, dislocation, or calcific tendinitis of the left shoulder.
== END 2021-05-14 12:37 | disposition home or self-care (01) ==
LOC: HO.HMGCX 12:36
PROVIDERS: PCP Nurse Practitioner Family; Visit Provider Hospitalist
DX: M25.512 Pain in left shoulder (principal)
CPT/HCPCS: 73030

== ENCOUNTER → 2021-05-28 14:11 | Outpatient (BNVA) | payer MEDICARE, SELFPAY | PROVIDERS: PCP Nurse Practitioner Family; Visit Provider Internal Medicine | DX: I48.20 Chronic atrial fibrillation, unspecified (principal); Z51.81 Encounter for therapeutic drug level monitoring; Z79.01 Long term (current) use of anticoagulants | CPT/HCPCS: 85610; 99211 ==

== ENCOUNTER → 2021-06-11 13:54 | Outpatient (BNVA) | payer MEDICARE, SELFPAY | PROVIDERS: PCP Nurse Practitioner Family; Visit Provider Internal Medicine | DX: I48.20 Chronic atrial fibrillation, unspecified (principal); Z51.81 Encounter for therapeutic drug level monitoring; Z79.01 Long term (current) use of anticoagulants | CPT/HCPCS: 85610; 99211 ==

== ENCOUNTER → 2021-06-16 14:11 | Outpatient (BNVA) | payer MEDICARE, SELFPAY | PROVIDERS: PCP Nurse Practitioner Family; Visit Provider Internal Medicine | DX: I48.20 Chronic atrial fibrillation, unspecified (principal); Z51.81 Encounter for therapeutic drug level monitoring; Z79.01 Long term (current) use of anticoagulants | CPT/HCPCS: 85610; 99211 ==

== ENCOUNTER → 2021-06-23 13:09 | Outpatient (BNVA) | payer MEDICARE, SELFPAY | PROVIDERS: PCP Nurse Practitioner Family; Visit Provider Internal Medicine | DX: I48.20 Chronic atrial fibrillation, unspecified (principal); Z51.81 Encounter for therapeutic drug level monitoring; Z79.01 Long term (current) use of anticoagulants | CPT/HCPCS: 85610; 99211 ==

== ENCOUNTER → 2021-06-26 13:15 | Outpatient (BNVA) | payer MEDICARE, SELFPAY | PROVIDERS: PCP Nurse Practitioner Family; Visit Provider Internal Medicine | DX: I48.20 Chronic atrial fibrillation, unspecified (principal); Z51.81 Encounter for therapeutic drug level monitoring; Z79.01 Long term (current) use of anticoagulants | CPT/HCPCS: 85610; 99211 ==

== ENCOUNTER 2021-06-29 12:48 | Emergency (ER) | payer MEDICARE, SELFPAY ==
--- NOTE | ~2021-06-29 | XR_ITS ---
EXAMINATION: BILATERAL SHOULDERS, BILATERAL HIP AND AP PELVIS AND KUB. CLINICAL INFORMATION: Obstruction, bloating. Shoulder pain. COMPARISON: None TECHNIQUE: 3 views each shoulder. AP pelvis one view. Bilateral hips 2 views each. KUB one view. FINDINGS: Right shoulder: There is loss of glenohumeral joint space with periarticular spurring. No visible acute fracture, dislocation or subluxation seen. There is mild widening of the AC joint with periarticular spurring. No fracture, loose bodies or soft tissue calcification or swelling seen. Left shoulder: There is mild loss of glenohumeral and left AC joint space with minimal periarticular spurring. No visible acute fracture or dislocation seen. The soft tissues are normal. AP pelvis there is mild reduction bilateral hip joint space. The SI joints are maintained normal. There is old healed fracture left inferior pubic ramus/ischial junction. There is no acute fracture or dislocation. The soft tissues are normal. There are degenerative disc changes lower lumbar spine. Right hip: There is mild reduction hip joint space. No acute fracture or dislocation seen. No loose bodies visualized. There is minimal inferior humeral head spurring. Left hip: There is intramedullary femoral nathan in the compression screw through femoral neck for an old healed fracture proximal femur. There is no acute fracture seen. Mild reduction left hip joint space with periarticular spurring seen. KUB. There is scattered stool and gas seen throughout the colon without significant distention. No organomegaly. The and this changes are seen throughout lumbar spine with minimal scoliosis and moderate spondylosis. XR/XR shoulder LT min 2V IMPRESSION: Mild increase in the right AC joint space with periarticular spurring. Mild bilateral shoulder joint arthritic changes. No acute fracture or dislocation. There is a left intramedullary femoral nathan and compression screw for an old healed proximal femoral fracture. The right hip appears unremarkable. AP pelvis is unremarkable. There is an old healed left inferior pubic rami/ischium fracture. The soft tissues are normal.
--- NOTE | ~2021-06-29 | CT_ITS ---
EXAMINATION: CT ABDOMEN AND PELVIS WITHOUT CONTRAST CLINICAL INFORMATION: Lower abdominal pain COMPARISON: CT abdomen pelvis December 03, 2020 TECHNIQUE: Multidetector volumetric imaging was performed from the superior aspect of the liver through the pubic symphysis. Sagittal and coronal reformatted images were obtained on the technologist's workstation. This CT examination was performed using dose optimization techniques as appropriate, variously including the following: *Automated exposure control *Adjustment of mA and/or kV according to patient size (this includes techniques or standardized protocols for targeted exams where dose is matched to indication/reason for exam; i.e. extremities or head) *Use of iterative reconstruction technique DLP: 720 mGy-cm FINDINGS: Visualized lung bases are well aerated. The liver is normal in size but demonstrates diffusely decreased attenuation. Numerous small calcified granulomas are present throughout the liver. The gallbladder is normal in appearance. Calcified granulomas are again noted throughout the spleen. The pancreas is normal in appearance. The adrenal glands are unremarkable. Symmetrically sized kidneys. No renal calculi or hydronephrosis bilaterally. Moderate sized hiatal hernia again noted. Normal caliber loops of small and large bowel. Mild to moderate colonic diverticulosis without CT evidence to suggest active diverticulitis. Normal appendix. Normal caliber abdominal aorta. No retroperitoneal lymphadenopathy. Bladder is normal in appearance. Old calcified degenerated uterine fibroids. No gross free pelvic fluid. No inguinal lymphadenopathy. Fat-containing inguinal hernias again noted. Diffuse osteopenia. Partially visualized left hip prosthesis. Scoliotic and degenerative changes of the spine. Degenerative changes of the lumbar spine have progressed from November the , particularly at L2/[address]/CT abdomen pelvis wo con IMPRESSION: 1. Hepatic steatosis. 2. Evidence of prior granulomatous disease. 3. Moderate sized hiatal hernia. 4. Colonic diverticulosis. 5. Leiomyomatous disease of the uterus. 6. Interval worsening in degenerative changes of the lumbar spine.
[2021-06-29 13:21] VITALS: BP 137/40; PULSE 59; RESP 20; TEMP 36.6; O2SAT 100; BMI 30.5
--- NOTE | 2021-06-29 13:28 | ED.GENADULT ---
HPI - General Adult General Chief complaint: Abdominal Pain Stated complaint: Multiple complaints Time Seen by Provider: 06/29/21 13:23 Related Data Home Medications Medication Instructions Recorded Confirmed albuterol sulfate 90 mcg/actuation 2 puff INHALATION Q4H PRN 08/25/20 06/26/21 aerosol inhaler pramipexole 0.75 mg tablet 0.75 mg PO DAILY 12/03/20 06/26/21 acetaminophen 325 mg tablet 650 mg PO Q4H PRN 02/02/21 06/26/21 (Tylenol) ascorbic acid (vitamin C) 250 mg 250 mg PO DAILY 02/02/21 06/26/21 tablet ferrous sulfate 324 mg (65 mg 324 mg PO DAILY 02/02/21 06/26/21 iron) tablet,delayed release omega-3 fatty acids 1,000 mg 1,000 mg PO DAILY 02/02/21 06/26/21 capsule thiamine HCl (vitamin B1) 100 mg 100 mg PO DAILY 02/02/21 06/26/21 tablet vitamin E (dl, acetate) 400 unit 400 unit PO DAILY 02/02/21 06/26/21 capsule diclofenac sodium 1 % topical gel 4 g TOPICAL QID g 04/21/21 06/26/21 torsemide 20 mg tablet 20 mg PO DAILY 05/14/21 06/26/21 Previous Rx's Medication Instructions Recorded cyclobenzaprine 10 mg tablet 10 mg PO TID PRN #10 tab 12/04/20 walker #1 ea 12/08/20 amoxicillin 500 mg capsule 500 mg PO ONCE #4 cap 02/02/21 omeprazole 20 mg capsule,delayed 20 mg PO DAILY #90 cap 02/18/21 release trazodone 50 mg tablet 50 mg PO BEDTIME PRN #30 tab 03/16/21 warfarin 6 mg tablet 6 mg PO 6XW #90 tab 04/05/21 metolazone 2.5 mg tablet 2.5 mg PO QAM #30 tab 04/06/21 metoprolol tartrate 25 mg tablet 25 mg PO BID #180 tab 04/06/21 torsemide 20 mg tablet 20 mg PO BID 30 Days #60 tab 04/06/21 sertraline 100 mg tablet 100 mg PO DAILY 90 Days #90 tab 04/21/21 oxycodone-acetaminophen 5 mg-325 1 tab PO Q6H PRN #14 tab 05/14/21 mg tablet (Percocet) gabapentin 600 mg tablet 600 mg PO BID 30 Days #60 tab 06/03/21 oxycodone 5 mg tablet 5 mg PO TID PRN #10 tab 06/29/21 Allergies Allergy/AdvReac Type Severity Reaction Status Date / Time metronidazole [From FLAGYL] Allergy Intermediate ITCHING Verified 06/26/21 13:39 deet Allergy Unknown Unknown Verified 06/26/21 13:39 DEET MOSQUITO REPELLANT Allergy Severe ANGIOEDEMA Uncoded 06/26/21 13:39 metronidazole Allergy Unknown Unknown Uncoded 06/26/21 13:39 [facility] Past Medical History Medical History Atrial fibrillation Back pain Chronic a-fib Closed left hip fracture COPD (chronic obstructive pulmonary disease) Current use of anticoagulant therapy [place] Hip fracture Hip strain Osteoarthritis of hip Sleep apnea Tachy-adeel syndrome Traumatic intracranial hemorrhage Uterine prolapse Surgical History Aortic valve replaced H/O colonoscopy Tricuspid valve replaced Social History Social History Alcohol intake: current Alcohol intake frequency: holidays/special occasions only Alcohol type: wine Patient Tobacco Use Status: Never used Tobacco Advance Directives: Yes Advance Directives Information Provided: Yes Advance Directives on File: No Physical Exam Vital Signs: Vital Signs: Last Vital Signs Temp 97.9 F 06/29/21 13:21 Pulse 72 06/29/21 22:23 Resp 18 06/29/21 22:23 BP 148/57 H 06/29/21 22:23 Pulse Ox 98 06/29/21 22:23 Body Mass Index 30.5 Course Course Course Narrative: Patient presents to the ED for multiple compaints such as chronic bilateral shoulder pain due to arthritis. Patient states pain on movement of upper extremities due to shoulder pain. Patient also states bloating with lower abdominal pain. patient also states bilateral hip pain. Labs and imaging ordered. This is a Rapid medical screening. Medical Decision Making Lab Data Result diagrams: 06/29/21 14:45 06/29/21 14:45 Labs: Lab Results 06/29/21 06/29/21 06/29/21 Range/Units 14:45 14:45 14:45 WBC 10.8 (4.8-10.8) X10*3/uL RBC 3.60 L (4.20-5.50) X10*6/uL Hgb 9.5 L (12.0-16.0) g/dl Hct 31.7 L (37-47) % MCV 88.1 (80-98) fL MCH 26.4 L (27.0-33.0) pg MCHC 30.0 L (31.0-35.0) g/dl RDW 16.5 H (11.0-16.0) % Plt Count 176 D (160-400) X10*3/uL MPV 10.6 (9.4-12.3) fL Immature Gran % (Auto) 0.5 H (0.0-0.4) % Neut % (Auto) 75.8 H (45-73) % Lymph % (Auto) 14.2 L (20-40) % [place] % (Auto) 8.1 (2-11) % Eos % (Auto) 1.3 (0-4) % Baso % (Auto) 0.1 (0-2) % Lymph # (Auto) 1.5 (1.2-4.9) X10*3/uL [place] # (Auto) 0.9 (0.1-1.2) X10*3/uL Eos # (Auto) 0.1 (0.0-0.4) X10*3/uL Baso # (Auto) 0.0 (0.0-0.2) X10*3/uL Abs Immat Gran (auto) 0.05 H (0.00-0.03) X10*3/uL Absolute Neuts (auto) 8.2 (2.0-8.3) X10*3/uL Absolute Nucleated RBC 0.000 (0.0-0.012) X10*3/uL Nucleated RBC % (auto) 0.0 (0.0-0.2) /100WBC PT 22.5 H (9.9-13.0) SEC INR 2.0 H (0.9-1.1) APTT 42.4 H (24.1-38.0) SEC Sodium 143 (135-145) mmol/L Potassium 3.8 (3.3-5.1) mmol/L Chloride 104 (96-108) mmol/L Carbon Dioxide 29 (22-29) mmol/L Anion Gap 14 (12-20) BUN 20 H (9-16) mg/dL Creatinine 1.29 (0.5-1.4) mg/dL Estim Creat Clear Calc 41.7 Estimated GFR 40 Random Glucose 92 (60-115) mg/dL Calcium 9.4 (8.4-10.2) mg/dL Total Bilirubin 0.7 (0.0-1.0) mg/dL Direct Bilirubin 0.3 (0.0-0.5) mg/dL AST 20 (5-31) U/L ALT 16 (0-31) U/L Alkaline Phosphatase 144 H (39-117) U/L Troponin I High Sens (<3.5-17.0) ng/L Total Protein 6.5 (6.5-8.0) g/dL Albumin 3.8 (3.5-5.0) g/dL Lipase 47 (8-78) U/L Urine Color Urine Appearance Urine pH (5.0-8.0) Ur Specific [place] (1.005-1.025) Urine Protein (NEG-TRACE) MG/DL Urine Glucose (UA) (NEG) MG/DL Urine Ketones (NEG) MG/DL Urine Blood (NEG) Urine Nitrite (NEG) Ur Leukocyte Esterase (NEG) Urine RBC (0) /HPF Urine WBC (0-4) /HPF Ur Squamous Epith Cells /LPF Urine Bacteria /LPF Hyaline Casts /LPF Urine Mucus /LPF 06/29/21 06/29/21 Range/Units 14:45 22:22 WBC (4.8-10.8) X10*3/uL RBC (4.20-5.50) X10*6/uL Hgb (12.0-16.0) g/dl Hct (37-47) % MCV (80-98) fL MCH (27.0-33.0) pg MCHC (31.0-35.0) g/dl RDW (11.0-16.0) % Plt Count (160-400) X10*3/uL MPV (9.4-12.3) fL Immature Gran % (Auto) (0.0-0.4) % Neut % (Auto) (45-73) % Lymph % (Auto) (20-40) % [place] % (Auto) (2-11) % Eos % (Auto) (0-4) % Baso % (Auto) (0-2) % Lymph # (Auto) (1.2-4.9) X10*3/uL [place] # (Auto) (0.1-1.2) X10*3/uL Eos # (Auto) (0.0-0.4) X10*3/uL Baso # (Auto) (0.0-0.2) X10*3/uL Abs Immat Gran (auto) (0.00-0.03) X10*3/uL Absolute Neuts (auto) (2.0-8.3) X10*3/uL Absolute Nucleated RBC (0.0-0.012) X10*3/uL Nucleated RBC % (auto) (0.0-0.2) /100WBC PT (9.9-13.0) SEC INR (0.9-1.1) APTT (24.1-38.0) SEC Sodium (135-145) mmol/L Potassium (3.3-5.1) mmol/L Chloride (96-108) mmol/L Carbon Dioxide (22-29) mmol/L Anion Gap (12-20) BUN (9-16) mg/dL Creatinine (0.5-1.4) mg/dL Estim Creat Clear Calc Estimated GFR Random Glucose (60-115) mg/dL Calcium (8.4-10.2) mg/dL Total Bilirubin (0.0-1.0) mg/dL Direct Bilirubin (0.0-0.5) mg/dL AST (5-31) U/L ALT (0-31) U/L Alkaline Phosphatase (39-117) U/L Troponin I High Sens 4.9 (<3.5-17.0) ng/L Total Protein (6.5-8.0) g/dL Albumin (3.5-5.0) g/dL Lipase (8-78) U/L Urine Color YELLOW Urine Appearance CLEAR Urine pH 6.0 (5.0-8.0) Ur Specific [place] 1.010 (1.005-1.025) Urine Protein NEG (NEG-TRACE) MG/DL Urine Glucose (UA) NEG (NEG) MG/DL Urine Ketones NEG (NEG) MG/DL Urine Blood TRACE (NEG) Urine Nitrite NEG (NEG) Ur Leukocyte Esterase 2+ H (NEG) Urine RBC 1-4 (0) /HPF Urine WBC 10-14 H (0-4) /HPF Ur Squamous Epith Cells 2+ /LPF Urine Bacteria TRACE /LPF Hyaline Casts 0-2 /LPF Urine Mucus TRACE /LPF Discharge Plan Discharge Clinical Impression: Chronic joint pain, Abdominal pain Patient Disposition: Home, Self-Care Instructions: Rheumatoid Arthritis (ED) Additional Instructions: Please follow-up with your primary care physician tomorrow. If you have any worsening or new symptoms, please return to the emergency room or call 911 Prescriptions: New oxycodone 5 mg tablet 5 mg PO TID PRN (Reason: pain) Qty: 10 RF: 0 No Action omeprazole 20 mg capsule,delayed release(DR/EC) 20 mg PO DAILY Qty: 90 RF: 0 trazodone 50 mg tablet 50 mg PO BEDTIME PRN (Reason: for insomnia) Qty: 30 RF: 2 warfarin 6 mg tablet 6 mg PO 6XW Qty: 90 RF: 0 metolazone 2.5 mg tablet 2.5 mg PO QAM Qty: 30 RF: 2 torsemide 20 mg tablet 20 mg PO BID 30 Days Qty: 60 RF: 1 metoprolol tartrate 25 mg tablet 25 mg PO BID Qty: 180 RF: 0 gabapentin 600 mg tablet 600 mg PO BID 30 Days Qty: 60 RF: 2 pramipexole 0.75 mg Tablet 0.75 mg PO DAILY RF: 0 cyclobenzaprine 10 mg tablet 10 mg PO TID PRN (Reason: muscle spasm) Qty: 10 RF: 0 (DME) walker Misc See Rx Instructions .ROUTE .MEDSUPPLY Qty: 1 RF: 0 albuterol sulfate 90 mcg/actuation HFA aerosol inhaler 2 puff inhalation Q4H PRN (Reason: wheezing) RF: 0 sertraline 100 mg tablet 100 mg PO DAILY 90 Days Qty: 90 RF: 0 diclofenac sodium 1 % gel 4 g topical QID RF: 0 acetaminophen [Tylenol] 325 mg tablet 650 mg PO Q4H PRNRF: 0 omega-3 fatty acids 1,000 mg capsule 1,000 mg PO DAILY RF: 0 thiamine HCl (vitamin B1) 100 mg tablet 100 mg PO DAILY RF: 0 ferrous sulfate 324 mg (65 mg iron) tablet,delayed release (DR/EC) 324 mg PO DAILY RF: 0 vitamin E (dl, acetate) 400 unit capsule 400 unit PO DAILY RF: 0 ascorbic acid (vitamin C) 250 mg tablet 250 mg PO DAILY RF: 0 amoxicillin 500 mg capsule 500 mg PO ONCE Qty: 4 RF: 0 torsemide 20 mg tablet 20 mg PO DAILY RF: 0 oxycodone-acetaminophen [Percocet] 5-325 mg tablet 1 tab PO Q6H PRN (Reason: pain) Qty: 14 RF: 0 Interventions: ED Discharge Assessment Last Done: 06/29/21 23:10 Discharge Date/Time: 06/29/21 23:10
--- NOTE | 2021-06-29 13:34 | ECG_ITS ---
Test Reason : CP Blood Pressure : / mmHG Vent. Rate : 054 BPM Atrial Rate : 052 BPM P-R Int : 000 ms QRS Dur : 098 ms QT Int : 460 ms P-R-T Axes : 000 030 035 degrees QTc Int : 436 ms Atrial fibrillation with slow ventricular response with occasional ventricular-paced complexes Abnormal ECG When compared to the previous EKG of Atrial fibrillation is new Referred By: Bulmaro Jacques Electronically Signed By:RD WILDER MD
[2021-06-29 14:57] LABS: Basophils Percent Auto 0.1 % (0-2); Eosinophils Absolute Auto 0.1 X10*3/uL (0.0-0.4); Eosinophils Percent Auto 1.3 % (0-4); Hematocrit 31.7 % (37-47); Hemoglobin 9.5 g/dl (12.0-16.0); Imm Gran Abs Auto 0.05 X10*3/uL (0.00-0.03); Imm Gran Pct Auto 0.5 % (0.0-0.4); Lymphocytes Absolute Auto 1.5 X10*3/uL (1.2-4.9); Lymphocytes Percent Auto 14.2 % (20-40); MANUAL DIFF FLAG NO; Mean Corpuscular Hemoglobin 26.4 pg (27.0-33.0); Mean Corpuscular Volume 88.1 fL (80-98); Mean Platelet Volume 10.6 fL (9.4-12.3); Monocytes Absolute Auto 0.9 X10*3/uL (0.1-1.2); Monocytes Percent Auto 8.1 % (2-11); Neutrophils Absolute Auto 8.2 X10*3/uL (2.0-8.3); Neutrophils Percent Auto 75.8 % (45-73); Platelet Count 176 X10*3/uL (160-400); Red Cell Distribution Width 16.5 % (11.0-16.0); White Blood Count 10.8 X10*3/uL (4.8-10.8)
[2021-06-29 15:09] LABS: Prothrombin Time 22.5 SEC (9.9-13.0)
[2021-06-29 15:11] LABS: Partial Thromboplastin Time 42.4 SEC (24.1-38.0)
[2021-06-29 15:31] LABS: Alanine Aminotransferase 16 U/L (0-31); Albumin Level 3.8 g/dL (3.5-5.0); Alkaline Phosphatase 144 U/L (39-117); Anion Gap 14 (12-20); Aspartate Amino Transferase 20 U/L (5-31); Bilirubin Direct 0.3 mg/dL (0.0-0.5); Bilirubin Total 0.7 mg/dL (0.0-1.0); Blood Urea Nitrogen 20 mg/dL (9-16); Calcium 9.4 mg/dL (8.4-10.2); Carbon Dioxide 29 mmol/L (22-29); Chloride 104 mmol/L (96-108); Creatinine Clr Calc Pharmacy 41.7; Estimated Glomerular Filt Rate 40; Glucose Random 92 mg/dL (60-115); Lipase 47 U/L (8-78); Potassium 3.8 mmol/L (3.3-5.1); Sodium 143 mmol/L (135-145); Total Protein 6.5 g/dL (6.5-8.0)
[2021-06-29 15:35] LABS: Troponin-I High Sensitivity 4.9 ng/L (<3.5-17.0)
--- NOTE | 2021-06-29 16:31 | PC.NURSE ---
This RN recieved report from Dr Orosco who states pt has h/o arthritis with recent prednisone treatment but worsening sx and unable to lift arms now d/t pain. Pt now with abd pain, ?rehab placement, lives with son who is gone most of day.
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
[2021-06-29 22:23] VITALS: BP 148/57; PULSE 72; RESP 18; O2SAT 98
[2021-06-29 22:33] LABS: Glucose Urine UA NEG (NEG); Leukocyte Esterase Urine 2+ (NEG); Nitrite Urine NEG (NEG); UACC Culture Trigger YES; Urine Blood TRACE (NEG); Urine Ketones NEG (NEG); Urine Protein NEG (NEG-TRACE)
[2021-06-29 22:35] LABS: Appearance Urine CLEAR; Color Urine YELLOW
[2021-06-29] MEDS: oxyCODONE HCl Immed Release 5 MG TABLET PO (22:52)
[2021-06-29 23:00] LABS: Bacteria Urine TRACE /LPF; Hyaline Casts Urine 0-2 /LPF; Mucus Urine TRACE /LPF; Squamous Epithelial Cell Urine 2+ /LPF
== END 2021-06-29 23:10 | disposition home or self-care (01) ==
PROVIDERS: Physician Assistant; Emergency Provider Emergency Medicine; PCP Nurse Practitioner Family
DX: M25.511 Pain in right shoulder (principal); R10.30 Lower abdominal pain, unspecified; J44.9 Chronic obstructive pulmonary disease, unspecified; Z79.899 Other long term (current) drug therapy
CPT/HCPCS: 36415; 73030; 73521; 74018; 74176; 80053; 80076; 81001; 83690; 84484; 85025; 85610; 85730; 87086; 93005; 99284

== ENCOUNTER → 2021-07-29 13:03 | Outpatient (BNVA) | payer MEDICARE, SELFPAY | PROVIDERS: PCP Nurse Practitioner Family; Visit Provider Internal Medicine | DX: I48.20 Chronic atrial fibrillation, unspecified (principal); Z51.81 Encounter for therapeutic drug level monitoring; Z79.01 Long term (current) use of anticoagulants | CPT/HCPCS: 85610; 99211 ==

== ENCOUNTER → 2021-08-06 13:29 | Outpatient (BNVA) | payer MEDICARE, SELFPAY | PROVIDERS: PCP Nurse Practitioner Family; Visit Provider Internal Medicine | DX: I48.20 Chronic atrial fibrillation, unspecified (principal); Z51.81 Encounter for therapeutic drug level monitoring; Z79.01 Long term (current) use of anticoagulants | CPT/HCPCS: 85610; 99211 ==

== ENCOUNTER 2021-08-20 13:10 | Outpatient (REF) | payer MEDICARE, SELFPAY ==
[2021-08-20 13:49] LABS: MANUAL DIFF FLAG NO
[2021-08-20 14:14] LABS: Basophils Absolute Auto 0.1 X10*3/uL (0.0-0.2); Basophils Percent Auto 0.4 % (0-2); Eosinophils Absolute Auto 0.3 X10*3/uL (0.0-0.4); Eosinophils Percent Auto 2.5 % (0-4); Hematocrit 32.9 % (37-47); Hemoglobin 9.8 g/dl (12.0-16.0); Imm Gran Abs Auto 0.05 X10*3/uL (0.00-0.03); Imm Gran Pct Auto 0.4 % (0.0-0.4); Lymphocytes Absolute Auto 2.2 X10*3/uL (1.2-4.9); Lymphocytes Percent Auto 17.7 % (20-40); Mean Corpuscular HGB Conc 29.8 g/dl (31.0-35.0); Mean Corpuscular Hemoglobin 25.9 pg (27.0-33.0); Mean Platelet Volume 10.6 fL (9.4-12.3); Monocytes Percent Auto 7.7 % (2-11); Neutrophils Absolute Auto 8.8 X10*3/uL (2.0-8.3); Neutrophils Percent Auto 71.3 % (45-73); Platelet Count 274 X10*3/uL (160-400); Red Blood Count 3.78 X10*6/uL (4.20-5.50); Red Cell Distribution Width 16.6 % (11.0-16.0); White Blood Count 12.4 X10*3/uL (4.8-10.8)
[2021-08-20 14:47] LABS: Alanine Aminotransferase 26 U/L (0-31); Albumin Level 4.1 g/dL (3.5-5.0); Alkaline Phosphatase 129 U/L (39-117); Anion Gap 14 (12-20); Aspartate Amino Transferase 21 U/L (5-31); Bilirubin Total 0.9 mg/dL (0.0-1.0); Blood Urea Nitrogen 23 mg/dL (9-16); Calcium 9.9 mg/dL (8.4-10.2); Carbon Dioxide 29 mmol/L (22-29); Chloride 102 mmol/L (96-108); Cholesterol 180 mg/dL; Estimated Glomerular Filt Rate 42; Glucose Fasting 77 mg/dL (60-99); HDL Cholesterol 48 mg/dL; LDL Cholesterol Calculated 110 mg/dl; Potassium 3.8 mmol/L (3.3-5.1); Sodium 141 mmol/L (135-145); Triglycerides 112 mg/dL
[2021-08-20 14:49] LABS: Alanine Aminotransferase 25 U/L (0-31); Albumin Level 4.1 g/dL (3.5-5.0); Alkaline Phosphatase 128 U/L (39-117); Anion Gap 14 (12-20); Aspartate Amino Transferase 22 U/L (5-31); Bilirubin Total 0.9 mg/dL (0.0-1.0); Blood Urea Nitrogen 23 mg/dL (9-16); Carbon Dioxide 28 mmol/L (22-29); Chloride 103 mmol/L (96-108); Cholesterol 179 mg/dL; Estimated Glomerular Filt Rate 42; Glucose Random 77 mg/dL (60-115); HDL Cholesterol 48 mg/dL; LDL Cholesterol Calculated 109 mg/dl; Magnesium 2.1 mg/dL (1.6-2.6); Sodium 141 mmol/L (135-145); Total Protein 6.9 g/dL (6.5-8.0); Triglycerides 111 mg/dL
[2021-08-20 15:06] LABS: TSH reflex Free T4 0.88 uIU/mL (0.32-4.0)
[2021-08-20 15:18] LABS: Vitamin B12 522 pg/mL (200-900)
[2021-08-22 01:17] LABS: Lyme Abs Screen <0.90 index
[2021-08-26 04:52] LABS: Ceruloplasmin 37 mg/dL (18-53)
== END 2021-08-20 13:11 | disposition home or self-care (01) ==
LOC: HO.LAB 13:10
PROVIDERS: Absent Provider Nurse Practitioner Family; PCP Nurse Practitioner Family; Visit Provider Nurse Practitioner
DX: I10 Essential (primary) hypertension (principal); R25.1 Tremor, unspecified; I48.20 Chronic atrial fibrillation, unspecified; I34.0 Nonrheumatic mitral (valve) insufficiency
CPT/HCPCS: 36415; 80053; 80061; 82390; 82607; 83735; 84443; 85025; 86617; 86618

== ENCOUNTER → 2021-08-20 13:14 | Outpatient (BNVA) | payer MEDICARE, SELFPAY | PROVIDERS: PCP Nurse Practitioner Family; Visit Provider Internal Medicine | DX: I48.20 Chronic atrial fibrillation, unspecified (principal); Z51.81 Encounter for therapeutic drug level monitoring; Z79.01 Long term (current) use of anticoagulants | CPT/HCPCS: 85610; 99211 ==

== ENCOUNTER 2021-08-25 13:08 | Outpatient (REF) | payer MEDICARE, SELFPAY ==
--- NOTE | ~2021-08-25 | MM_ITS ---
EXAMINATION: BONE DENSITOMETRY CLINICAL INDICATION: Screening for osteoporosis. COMPARISON: Previous BD dated 10/10/2019 and baseline BD dated 09/28/2005. TECHNIQUE: Using a [employer] Digital DXA System (software version: 13.1) manufactured by [employer], dual-energy x-ray absorptiometry was performed of the lumbar spine and right hip. The images are of good technical quality. Summary results are attached. FINDINGS: AP SPINE L1-L2 (excluding L3 and L4): The data of L1-L4 has been changed to exclude the L3 and L4 vertebral bodies, because degenerative changes and curvature at these levels may cause overestimation of lumbar spine density. Current: BMD 1.052 g/cm2, Z-score 0.0, T-score 0.9, normal, 6.7% decrease from previous, 0.9% increase from baseline (<5% change is not significant). Prior: BMD 1.127 g/cm2. Baseline: BMD 1.043 g/cm2. RIGHT FEMUR, NECK: Current: BMD 0.757 g/cm2, Z-score -0.6, T-score -2.0, osteopenia. Prior: BMD 0.815 g/cm2. Baseline: BMD 0.945 g/cm2. RIGHT FEMUR, TOTAL: Current: BMD 0.792 g/cm2, Z-score -0.5, T-score -1.7, osteopenia, 6.6% decrease from previous, 24.8% decrease from baseline (<5% change is not significant). Prior: BMD 0.848 g/cm2. Baseline: BMD 1.053 g/cm2. IDENTIFIED RISK FACTORS: Menopause, osteoporosis, renal, low calcium intake, history of fracture (adult), height loss, family history (parent hip fracture), anticonvulsant. HISTORY OF FRACTURE: Wrist, hip. MEDICATIONS: Vitamin D. MM/XR DEXA axial skeleton IMPRESSION: 1. DIAGNOSIS: Osteopenia based on the lowest T-score value of -2.0 in the femoral neck applying World Health Organization criteria. 2. 10-YEAR FRACTURE RISK PREDICTION, FRAX: Major osteoporotic fracture (clinical spine, forearm, hip or shoulder) 34.1%. Hip fracture 20.1%. 3. Treatment Recommendations: NOF guidelines recommend consideration for treatment in postmenopausal women and men age 50 and older presenting with the following: -A hip or vertebral (clinical or morphometric) fracture. -T-score less than or equal to -2.5 at the femoral neck or spine after appropriate evaluation to exclude secondary causes. -Low bone mass at the hip or spine and a 10-year fracture probability by FRAX of greater than or equal to 3% for hip fracture or greater than or equal to 20% for major osteoporotic fracture based on the [place] adapted WHO algorithm. 4. Other Recommendations: All treatment decisions require clinical judgment and consideration of individual patient factors, including patient preferences, comorbidities, previous drug use, risk factors not captured in the FRAX model (e.g. frailty, falls, vitamin D deficiency, increased bone turnover, interval significant decline in bone density) and possible under or overestimation of fracture risk by FRAX. Additional medical evaluation for secondary cause of low bone mineral density may be appropriate. FUTURE SCAN RECOMMENDATION: People with diagnosed cases of osteoporosis or at high risk for fracture should have regular bone mineral density tests. For patients eligible for Medicare, routine testing is allowed once every 2 years. The testing frequency can be increased to one year for patients who have rapidly progressing disease, those who are receiving or discontinuing medical therapy to restore bone mass, or have additional risk factors.
--- NOTE | ~2021-08-25 | MM_ITS ---
EXAMINATION: MM SCREENING DIGITAL BREAST TOMOSYNTHESIS, BILATERAL CLINICAL INFORMATION: Screening. Asymptomatic. The lifetime risk of breast cancer based on the Tyrer-Cuzick Model is 2%. COMPARISON: Mammography: 10/18/2019, 12/14/2013 TECHNIQUE: Digital breast tomosynthesis is performed in both the craniocaudal and mediolateral oblique views along with computer-aided detection (CAD). Synthesized 2D images are generated from the tomosynthesis. FINDINGS: There are scattered areas of fibroglandular density (ACR BI-RADS breast composition Category b). There are no significant masses, abnormal calcifications, or other abnormalities. Parenchymal pattern is similar to prior exams. There is a pacemaker generator overlying and partly obscuring the upper left axilla on MLO view. Lateral right axillary tail nodes stable. Incidental bilateral scattered vascular calcifications again seen. No significant changes. MM/MM tomosynthesis screening BI IMPRESSION: No mammographic evidence of malignancy. ASSESSMENT: BI-RADS 2: Benign RECOMMENDATION: Routine annual mammography screening. This patient's information was entered into a reminder system with a target due date for their next mammogram.
== END 2021-08-25 13:09 | disposition home or self-care (01) ==
LOC: HO.MAMMO 13:08
PROVIDERS: Visit Provider Nurse Practitioner Family
DX: Z12.31 Encounter for screening mammogram for malignant neoplasm of breast (principal); Z13.820 Encounter for screening for osteoporosis; Z78.0 Asymptomatic menopausal state; E83.51 Hypocalcemia; R29.890 Loss of height
CPT/HCPCS: 77063; 77067; 77080

== ENCOUNTER → 2021-09-02 13:27 | Outpatient (BNVA) | payer MEDICARE, SELFPAY | PROVIDERS: PCP Nurse Practitioner Family; Visit Provider Internal Medicine | DX: I48.20 Chronic atrial fibrillation, unspecified (principal); Z51.81 Encounter for therapeutic drug level monitoring; Z79.01 Long term (current) use of anticoagulants | CPT/HCPCS: 85610; 99211 ==

== ENCOUNTER → 2021-09-16 13:26 | Outpatient (BNVA) | payer MEDICARE, SELFPAY | PROVIDERS: PCP Nurse Practitioner Family; Visit Provider Internal Medicine | DX: I48.20 Chronic atrial fibrillation, unspecified (principal); Z51.81 Encounter for therapeutic drug level monitoring; Z79.01 Long term (current) use of anticoagulants | CPT/HCPCS: 85610; 99211 ==

== ENCOUNTER → 2021-09-30 13:22 | Outpatient (BNVA) | payer MEDICARE, SELFPAY | PROVIDERS: PCP Nurse Practitioner Family; Visit Provider Internal Medicine | DX: I48.20 Chronic atrial fibrillation, unspecified (principal); Z51.81 Encounter for therapeutic drug level monitoring; Z79.01 Long term (current) use of anticoagulants | CPT/HCPCS: 85610; 99211 ==

== ENCOUNTER 2023-11-15 09:33 | Emergency (ER) | payer MEDICARE, SELFPAY ==
--- NOTE | 2023-11-15 | ECG_ITS ---
Test Reason : CHEST PAIN Blood Pressure : / mmHG Vent. Rate : 070 BPM Atrial Rate : 000 BPM P-R Int : 000 ms QRS Dur : 086 ms QT Int : 396 ms P-R-T Axes : 000 038 044 degrees QTc Int : 427 ms Atrial fibrillation Abnormal ECG When compared with ECG of 29-JUN-2021 14:40, No significant change was found Referred By: Generic ED Physician Electronically Signed By:YOLIE HOPPER
--- NOTE | ~2023-11-15 | XR_ITS ---
EXAMINATION: XR CHEST CLINICAL INFORMATION: Cough, chest pain and wheezing COMPARISON: None available. TECHNIQUE: 2 views of the chest were obtained. FINDINGS: The lungs are well-expanded and clear of acute process. Heart size is borderline normal. There is solitary pacer electrode in the right ventricle. There is aortic and mitral valve prosthesis in place. There are median sternotomy sutures as well. The pulmonary vascularity is slightly prominent likely mild congestion. No pleural effusion seen. No gross bony abnormality. XR/XR chest 2V IMPRESSION: 1. Mild pulmonary vascular congestion. No pleural effusion seen. 2. There is aortic and mitral valve prosthesis in place
[2023-11-15 09:59] VITALS: BP 125/55; PULSE 79; RESP 20; TEMP 37.2; O2SAT 97; BMI 31.3
[2023-11-15 10:46] LABS: IDNOW Serial# 08D9AD1C; Influenza A Negative (Negative); Influenza B2 Negative (Negative)
[2023-11-15 10:47] LABS: COVID-19 Test Negative (Negative); IDNOW Serial# BCCEAD1C
[2023-11-15 11:50] VITALS: PULSE 70; O2SAT 97
--- NOTE | 2023-11-15 12:17 | ED.GENADULT ---
HPI - General Adult General Chief complaint: Upper Respiratory Symptoms Stated complaint: Cough Wheeze ? Pneumonia Time Seen by Provider: 11/15/23 11:50 History of Present Illness HPI narrative: The patient is a 78-year-old woman with history of chronic atrial fibrillation on warfarin who also reports history of COPD and who was on torsemide 20 mg b.i.d.. The patient normally lives in [place]. She has been in this area for almost 2 months visiting her family for the holiday season. For a week she has had a runny nose and a cough. The cough has been worse over the last 3 days. She has had some yellow sputum production. She has had some worsening edema of her legs. No significant chest pain. The patient's medications include lisinopril, prednisone, spironolactone, omeprazole, losartan, metoprolol, gabapentin, torsemide, and warfarin. Related Data Home Medications Medication Instructions Recorded Confirmed acetaminophen 325 mg tablet 650 mg PO Q4H PRN 02/02/21 09/30/21 (Tylenol) vitamin E (dl, acetate) 180 mg 400 unit PO DAILY 02/02/21 09/30/21 (400 unit) capsule diclofenac sodium 1 % topical gel 4 g topical QID 04/21/21 09/30/21 warfarin 1 mg tablet 1 mg PO DAILY 09/30/21 09/30/21 Previous Rx's Medication Instructions Recorded walker #1 ea 12/08/20 gabapentin 600 mg tablet 600 mg PO TID 30 days #90 tabs 07/28/21 metoprolol tartrate 25 mg tablet 25 mg PO BID #180 tabs 08/23/21 albuterol sulfate 90 mcg/actuation 2 puff inhalation Q4H PRN wheezing 08/30/21 aerosol inhaler 30 days #8.5 grams umeclidinium 62.5 mcg/actuation 1 inh inhalation BEDTIME 30 days 08/30/21 blister powder for inhalation #30 ea (Aleyda Awan) torsemide 20 mg tablet 10 mg (1/2 x 20 mg) PO DAILY 90 09/01/21 days #45 tabs omeprazole 20 mg capsule,delayed 20 mg PO DAILY #90 caps 09/15/21 release torsemide 20 mg tablet 20 mg PO BID 30 days #60 tabs 10/03/21 prednisone 10 mg tablet 10 mg PO DAILY 30 days #30 tabs 11/08/21 warfarin 6 mg tablet See Rx Instructions PO .COMPLEX 12/07/21 #90 tabs azithromycin 250 mg tablet 250 mg PO DAILY 4 days #4 tabs 11/15/23 prednisone 20 mg tablet 40 mg (2 x 20 mg) PO DAILY 4 days 11/15/23 #8 tabs Allergies Allergy/AdvReac Type Severity Reaction Status Date / Time metronidazole [From FLAGYL] Allergy Intermediate ITCHING Verified 11/15/23 09:58 deet Allergy Unknown Unknown Verified 11/15/23 09:58 DEET MOSQUITO REPELLANT Allergy Severe ANGIOEDEMA Uncoded 11/15/23 09:58 metronidazole Allergy Unknown Unknown Uncoded 11/15/23 09:58 Review of Systems Review of Systems: Yes all other systems are reviewed and are negative [facility] Past Medical History Medical History Atrial fibrillation Back pain Chronic a-fib Closed left hip fracture Complete atrioventricular block COPD (chronic obstructive pulmonary disease) Current use of anticoagulant therapy [place] Hip fracture Hip strain Osteoarthritis of hip Sleep apnea Tachy-adeel syndrome Traumatic intracranial hemorrhage Uterine prolapse Surgical History Aortic valve replaced H/O colonoscopy Hx of mitral valve replacement Tricuspid valve replaced Social History Social History Housing: House Alcohol intake: never Comment: pt sleeping at this time Patient Tobacco Use Status: Never used Tobacco Smoked in Last 30 Days: No e-Cigarette/Vaping Use: Never Used Second Hand Smoke Exposure: Yes Use of substances other than those prescribed or required for medical reasons: No Advance Directives: Yes Advance Directives on File: Yes Advance Directives Date on File: 12/04/20 Current occupational status: retired Physical Exam ED Vital Signs: Vital Signs - 24 hr 11/15/23 09:59 11/15/23 11:50 11/15/23 12:35 Temperature 98.9 F Pulse Rate 79 69 Respiratory Rate 20 18 Blood Pressure 125/55 L Pulse Oximetry 97 97 Oxygen Delivery Method Room Air Room Air 11/15/23 14:16 Temperature 97.7 F Pulse Rate 88 Respiratory Rate 16 Blood Pressure 106/44 L Pulse Oximetry 97 Oxygen Delivery Method Room Air BMI result Body Mass Index 31.3 Const Other: The patient is awake and alert. She is a chronically ill-appearing 78-year-old. She looks very mildly unwell but not acutely ill or in distress. No increased work of breathing. HENMT Other: Mucous membranes moist. Face symmetrical. Eyes Other: Pupils are round equal, conjunctivae are clear, extraocular movements intact Neck Other: No obvious JVD Resp Other: Slight crackles at the bases. No increased work of breathing. Cardio Other: The patient has an irregular rate and rhythm. She has a 3/6 holosystolic murmur GI Other: Abdomen is soft and nontender Skin Other: Some edema of the lower legs. Skin is otherwise unremarkable. Neuro Other: Patient is awake and alert with normal mental status. Face is symmetrical. Speech is clear. Moving all 4 extremities symmetrically. Grossly neurologically intact. Extrem Other: One to 2+ edema of the lower legs. Medications Administered Discontinued Medications Generic Name Dose Route Start Last Admin Trade Name Freq PRN Reason Stop Dose Admin Acetaminophen 975 mg 11/15/23 12:19 11/15/23 13:07 Acetaminophen 325 Mg Tablet PO 11/15/23 12:20 975 mg ONCE ONE Administration Albuterol/Ipratropium 3 ml 11/15/23 12:30 11/15/23 12:33 Albuterol/Iprat 2.5/0.5mg 3 Ml Ampul.Neb INHALE 11/15/23 12:31 3 ml ONCE ONE Administration Azithromycin 500 mg 11/15/23 14:29 11/15/23 14:43 Azithromycin 500 Mg Tablet PO 11/15/23 14:30 500 mg ONCE ONE Administration Furosemide 80 mg 11/15/23 12:16 11/15/23 13:07 Furosemide 100 Mg/10 Ml Vial IVPUSH 11/15/23 12:17 80 mg ONCE ONE Administration Protocol Prednisone 60 mg 11/15/23 14:29 11/15/23 14:42 Prednisone 20 Mg Tablet PO 11/15/23 14:30 60 mg ONCE ONE Administration Medical Decision Making Medical Decision Making MDM Narrative: Patient is a 78-year-old female who presents with cough and shortness of breath. She has a history of COPD and she likely has some degree of chronic congestive heart failure as well. She has chronic atrial fibrillation on warfarin and she is on torsemide 20 mg b.i.d.. Clinically the patient is not in overt distress and does not seem overly toxic. She has a mild elevation of her white count at 13.6 but she is on chronic prednisone at 10 mg daily. This makes her white count harder to interpret. She has 76 neutrophils. Her CRP is only minimally elevated at 2.46. Her BNP is elevated at 328. Her chest x-ray was read as showing mild pulmonary vascular congestion. I suspect the patient's symptoms are likely a combination of a COPD exacerbation and some degree of mild congestive heart failure. She was treated with 80 mg of IV furosemide as well as a DuoNeb updraft. She had a good urine output response to the furosemide. She also felt better after the updraft. She will be placed on a 5 day prednisone burst as well as azithromycin. She should continue her regular medications. She will be returning to [place] in about a week. She looks well enough for discharge. She is was oxygenating well on room air. My hope is this will be sufficient treatment Lab Data 11/15/23 12:47 11/15/23 12:47 Labs: Lab Results 11/15/23 11/15/23 Range/Units 10:24 12:47 WBC 13.6 H (4.8-10.8) X10*3/uL RBC 2.88 L (4.20-5.50) X10*6/uL Hgb 8.7 L (12.0-16.0) g/dl Hct 28.9 L (37.0-47.0) % MCV 100.3 H (80.0-98.0) fL MCH 30.2 (27.0-33.0) pg MCHC 30.1 L (31.0-35.0) g/dl RDW 14.6 (11.0-16.0) % Plt Count 157 L (160-400) X10*3/uL MPV 10.7 (9.4-12.3) fL Immature Gran % (Auto) 0.4 (0.0-0.4) % Neut % (Auto) 76.0 H (45-73) % Lymph % (Auto) 11.4 L (20-40) % [place] % (Auto) 9.9 (2-11) % Eos % (Auto) 2.1 (0-4) % Baso % (Auto) 0.2 (0-2) % Lymph # (Auto) 1.6 (1.2-4.9) X10*3/uL [place] # (Auto) 1.4 H (0.1-1.2) X10*3/uL Eos # (Auto) 0.3 (0.0-0.4) X10*3/uL Baso # (Auto) 0.0 (0.0-0.2) X10*3/uL Abs Immat Gran (auto) 0.06 H (0.00-0.03) X10*3/uL Absolute Neuts (auto) 10.4 H (2.0-8.3) x10*3/uL Absolute Nucleated RBC 0.000 (0.0-0.012) X10*3/uL Nucleated RBC % (auto) 0.0 (0.0-0.2) /100WBC PT 18.8 H (11.1-13.3) SEC INR 1.5 H (0.9-1.1) Sodium 144 (135-145) mmol/L Potassium 4.0 (3.3-5.1) mmol/L Chloride 106 (96-108) mmol/L Carbon Dioxide 28 (22-29) mmol/L Anion Gap 14 (12-20) BUN 28 H (9-16) mg/dL Creatinine 1.45 H (0.5-1.4) mg/dL Estim Creat Clear Calc 36.3 Estimated GFR 35 Random Glucose 90 (60-115) mg/dL Calcium 9.8 (8.4-10.2) mg/dL Magnesium 1.9 (1.6-2.6) mg/dL Total Bilirubin 0.7 (0.0-1.0) mg/dL Direct Bilirubin 0.3 (0.0-0.5) mg/dL AST 24 (5-31) U/L ALT 21 (0-31) U/L Alkaline Phosphatase 77 (39-117) U/L C-Reactive Protein 2.46 H (< or = 0.50) mg/dL B-Natriuretic Peptide 328 H (<100) pg/mL Total Protein 6.0 L (6.5-8.0) g/dL Albumin 3.5 (3.5-5.0) g/dL COVID-19 (ASHLEE) Negative (Negative) COVID-19 Clin Com See Note Influenza Type A (DANELLE) Negative (Negative) Influenza Type B (DANELLE) Negative (Negative) Influenza A & B Note See Note Independent Interpretation I performed an independent interpretation of an: EKG Interpretation: EKG at 11:59 shows atrial fibrillation at 70 beats per minute. No acute ischemic changes. Discharge Plan Discharge Clinical Impression: Acute exacerbation of chronic obstructive pulmonary disease, Pulmonary vascular congestion Patient Disposition: Home, Self-Care Additional Instructions: You have been started on a brief burst of prednisone. Please take the additional prednisone instead of your regular prednisone until it is done. Then resume your normal prednisone. You have also been started on a course of azithromycin. Please take this medication once a day. Next dose tomorrow. Continue your torsemide and other medications. Use your albuterol nebulizer machine every 4 hours as needed. Please follow-up soon with your regular doctor when you return to [place]. Return to the emergency room here if you are worse before then. Prescriptions: New prednisone 20 mg tablet 40 mg PO DAILY 4 Days Qty: 8 0RF azithromycin 250 mg tablet 250 mg PO DAILY 4 Days Qty: 4 0RF Rx Instructions: start on day 2 of therapy No Action metoprolol tartrate 25 mg tablet 25 mg PO BID Qty: 180 0RF albuterol sulfate 90 mcg/actuation HFA aerosol inhaler 2 puff inhalation Q4H PRN (Reason: wheezing) 30 Days Qty: 8.5 3RF Incruse Ellipta 62.5 mcg/actuation blister with device 1 inh inhalation BEDTIME 30 Days Qty: 30 3RF torsemide 20 mg tablet 10 mg PO DAILY 90 Days Qty: 45 0RF omeprazole 20 mg capsule,delayed release(DR/EC) 20 mg PO DAILY Qty: 90 0RF torsemide 20 mg tablet 20 mg PO BID 30 Days Qty: 60 1RF prednisone 10 mg tablet 10 mg PO DAILY 30 Days Qty: 30 0RF warfarin 6 mg tablet See Rx Instructions PO .COMPLEX Qty: 90 0RF Protocol: Dose Management Condition: Tuesday (Week One) Dose/Route: 6 mg Instruction: 1 x 6 mg tablet Condition: Tuesday Dose/Route: 3 mg Instruction: 3 x 1 mg tablets Condition: Tuesday Dose/Route: 6 mg Instruction: 1 x 6 mg tablet Condition: Tuesday Dose/Route: 3 mg Instruction: 3 x 1 mg tablets Condition: Dose/Route: 6 mg Instruction: 1 x 6 mg tablet Condition: Tuesday Dose/Route: 3 mg Instruction: 3 x 1 mg tablets Condition: Tuesday Dose/Route: 3 mg Instruction: 3 x 1 mg tablets Condition: Tuesday ( Two) Dose/Route: 6 mg Instruction: 1 x 6 mg tablet Condition: Tuesday Dose/Route: 3 mg Instruction: 3 x 1 mg tablets Condition: Tuesday Dose/Route: 6 mg Instruction: 1 x 6 mg tablet Condition: Tuesday Dose/Route: 3 mg Instruction: 3 x 1 mg tablets Condition: Dose/Route: 6 mg Instruction: 1 x 6 mg tablet Condition: Tuesday Dose/Route: 3 mg Instruction: 3 x 1 mg tablets Condition: Tuesday Dose/Route: 3 mg Instruction: 3 x 1 mg tablets Protocol Text: Adjustment Start Date: Tuesday09/30/21 INR Value: 2.1 INR Date: 09/16/21 Recheck Date: 10/28/21 Rx Instructions: 6MG PO TUE, TUE, TUE, TUE; TAKES 3MG PO TUE, TUE, TUE. ADJUSTS DOSE NEEDED BASED ON INR LEVEL PER [facility]. [facility] See Rx Instructions .ROUTE .MEDSUPPLY Qty: 1 0RF Rx Instructions: As directed diclofenac sodium 1 % gel 4 g topical QID Rx Instructions: apply to single elbow, wrist or hand; for hand includes palm/fingers/back of hand acetaminophen [Tylenol] 325 mg tablet 650 mg PO Q4H PRN vitamin E (dl, acetate) 400 unit capsule 400 unit PO DAILY gabapentin 600 mg tablet 600 mg PO TID 30 Days Qty: 90 2RF warfarin 1 mg tablet 1 mg PO DAILY Protocol: Dose Management Condition: Tuesday (Week One) Dose/Route: 6 mg Instruction: 1 x 6 mg tablet Condition: Tuesday Dose/Route: 3 mg Instruction: 3 x 1 mg tablets Condition: Tuesday Dose/Route: 6 mg Instruction: 1 x 6 mg tablet Condition: Tuesday Dose/Route: 3 mg Instruction: 3 x 1 mg tablets Condition: Dose/Route: 6 mg Instruction: 1 x 6 mg tablet Condition: Tuesday Dose/Route: 3 mg Instruction: 3 x 1 mg tablets Condition: Tuesday Dose/Route: 3 mg Instruction: 3 x 1 mg tablets Condition: Tuesday (Week Two) Dose/Route: 6 mg Instruction: 1 x 6 mg tablet Condition: Tuesday Dose/Route: 3 mg Instruction: 3 x 1 mg tablets Condition: Tuesday Dose/Route: 6 mg Instruction: 1 x 6 mg tablet Condition: Tuesday Dose/Route: 3 mg Instruction: 3 x 1 mg tablets Condition: Dose/Route: 6 mg Instruction: 1 x 6 mg tablet Condition: Tuesday Dose/Route: 3 mg Instruction: 3 x 1 mg tablets Condition: Tuesday Dose/Route: 3 mg Instruction: 3 x 1 mg tablets Protocol Text: Adjustment Start Date: Tuesday09/30/21 INR Value: 2.1 INR Date: 09/16/21 Recheck Date: 10/28/21 Interventions: ED Discharge Assessment Last Done: 11/15/23 14:57
--- NOTE | 2023-11-15 12:29 | MHC.EDTECH ---
Patient refused noon vitals stating the cuff makes her arms black and blue.
[2023-11-15] MEDS: Albuterol/Iprat 2.5/0.5MG 3 ML AMPUL.NEB INHALE (12:33)
[2023-11-15 12:35] VITALS: PULSE 69; RESP 18; O2SAT 97
[2023-11-15 12:51] LABS: MANUAL DIFF FLAG NO
[2023-11-15 12:52] LABS: Basophils Percent Auto 0.2 % (0-2); Eosinophils Absolute Auto 0.3 X10*3/uL (0.0-0.4); Eosinophils Percent Auto 2.1 % (0-4); Hematocrit 28.9 % (37.0-47.0); Hemoglobin 8.7 g/dl (12.0-16.0); Imm Gran Abs Auto 0.06 X10*3/uL (0.00-0.03); Imm Gran Pct Auto 0.4 % (0.0-0.4); Lymphocytes Absolute Auto 1.6 X10*3/uL (1.2-4.9); Lymphocytes Percent Auto 11.4 % (20-40); Mean Corpuscular HGB Conc 30.1 g/dl (31.0-35.0); Mean Corpuscular Hemoglobin 30.2 pg (27.0-33.0); Mean Corpuscular Volume 100.3 fL (80.0-98.0); Mean Platelet Volume 10.7 fL (9.4-12.3); Monocytes Absolute Auto 1.4 X10*3/uL (0.1-1.2); Monocytes Percent Auto 9.9 % (2-11); Neutrophils Absolute Auto 10.4 x10*3/uL (2.0-8.3); Platelet Count 157 X10*3/uL (160-400); Red Blood Count 2.88 X10*6/uL (4.20-5.50); Red Cell Distribution Width 14.6 % (11.0-16.0); White Blood Count 13.6 X10*3/uL (4.8-10.8)
[2023-11-15 12:58] LABS: INTERNATIONAL NORM RATIO 1.5 (0.9-1.1); Prothrombin Time 18.8 SEC (11.1-13.3)
[2023-11-15 13:06] LABS: Alanine Aminotransferase 21 U/L (0-31); Albumin Level 3.5 g/dL (3.5-5.0); Alkaline Phosphatase 77 U/L (39-117); Anion Gap 14 (12-20); Aspartate Amino Transferase 24 U/L (5-31); Bilirubin Direct 0.3 mg/dL (0.0-0.5); Bilirubin Total 0.7 mg/dL (0.0-1.0); Blood Urea Nitrogen 28 mg/dL (9-16); C Reactive Protein 2.46 mg/dL (< or = 0.50); Calcium 9.8 mg/dL (8.4-10.2); Carbon Dioxide 28 mmol/L (22-29); Chloride 106 mmol/L (96-108); Creatinine Clr Calc Pharmacy 36.3; Estimated Glomerular Filt Rate 35; Glucose Random 90 mg/dL (60-115); Magnesium 1.9 mg/dL (1.6-2.6); Sodium 144 mmol/L (135-145)
[2023-11-15] MEDS: Furosemide 100 MG/10 ML VIAL 80 MG IVPUSH (13:07)
[2023-11-15] MEDS: Acetaminophen 325 MG TABLET 975 MG PO (13:07)
[2023-11-15 13:13] LABS: B Type Natriuretic Peptide 328 pg/mL (<100)
[2023-11-15 14:16] VITALS: BP 106/44; PULSE 88; RESP 16; TEMP 36.5; O2SAT 97
[2023-11-15] MEDS: predniSONE 20 MG TABLET 60 MG PO (14:42)
[2023-11-15] MEDS: Azithromycin 500 MG TABLET PO (14:43)
== END 2023-11-15 15:38 | disposition home or self-care (01) ==
PROVIDERS: Emergency Provider Emergency Medicine
DX: J44.1 Chronic obstructive pulmonary disease with (acute) exacerbation (principal); R05.9 Cough, unspecified; R06.02 Shortness of breath; I48.20 Chronic atrial fibrillation, unspecified; Z79.01 Long term (current) use of anticoagulants; Z11.52 Encounter for screening for COVID-19; Z20.822 Contact with and (suspected) exposure to COVID-19; Z79.899 Other long term (current) drug therapy
CPT/HCPCS: 36415; 71046; 80048; 80076; 83735; 83880; 85025; 85610; 86140; 87502; 87635; 93005; 94640; 96374; 99284; 99285; J1940

== ENCOUNTER → 2023-11-15 11:59 | Outpatient (BNV) | payer MEDICARE, SELFPAY | PROVIDERS: Emergency Provider Emergency Medicine; Visit Provider Internal Medicine | DX: R07.9 Chest pain, unspecified (principal); I48.91 Unspecified atrial fibrillation | CPT/HCPCS: 93010 ==